=== PATIENT | female | born 2000 | race Caucasian/White ===

== ENCOUNTER 2018-09-21 14:39 | Emergency (ER) | payer BC ==
[2018-09-21] MEDS ORDERED: Albuterol/Ipratropium 3.0-0.5 MG/3 ML Neb Soln NEB ONE (14:49)
[2018-09-21] MEDS ORDERED: methylPREDNISolone Sodium Succinate 125 MG/2 ML SDV IM ONE (14:53)
[2018-09-21 15:37] LABS: CHLORIDE,CL 101 mmol/L (98-107); SODIUM,NA 138 mmol/L (136-145)
--- NOTE | 2018-09-21 15:54 | EDM.PDOC ---
ED HPI GENERAL MEDICAL PROBLEM - General Chief Complaint: Respiratory Problem Stated Complaint: FEELING SICK/DIFF. BREATHING Time Seen by Provider: 09/21/18 14:41 Source of Information: Reports: Patient History Limitations: Reports: No Limitations - History of Present Illness INITIAL COMMENTS - FREE TEXT/NARRATIVE: HISTORY AND PHYSICAL: History of present illness: Patient is a 18-year-old female presents to the ED today with concern of cough and feeling like she can't take a deep breath. Patient states she does have a history of asthma and has an albuterol inhaler. Patient states she has not followed up with her asthma and some time but feels that her symptoms could be related to an exacerbation. Patient states she was supposed to be taking another medication for her asthma but has not followed up to get it refilled. Patient states her symptoms today of an ongoing for the past 2-3 days and she has noticed she has had to use her albuterol inhaler several times throughout the day. Patient denies fever, chills, chest pain. Denies headache, neck stiff ness, change in vision, syncope, or near syncope. Denies nausea, vomiting, abdominal pain, diarrhea, constipation, or dysuria. Has not noted any blood in urine or stool. Patient has been eating and drinking appropriately. Patient denies any other health history. Review of systems: As per history of present illness and below otherwise all systems reviewed and negative. Past medical history: As per history of present illness and as reviewed below otherwise noncontributory. Surgical history: As per history of present illness and as reviewed below otherwise noncontributory. Social history: See social history for further information Family history: As per history of present illness and as reviewed below otherwise noncontributory. Physical exam: General: Patient is alert, oriented, and in no acute distress. Patient sitting comfortably on exam table. HEENT: Atraumatic, normocephalic, pupils equal and reactive bilaterally, negative for conjunctival pallor or scleral icterus, mucous membranes moist, TMs normal bilaterally, throat clear, neck supple, nontender, trachea midline. No drooling or trismus noted. No meningeal signs. No hot potato voice noted. Lungs: Mild wheezing heard in bilateral lung bases, breath sounds equal bilaterally, chest nontender. Heart: S1S2, regular rate and rhythm without overt murmur Abdomen: Obese, soft, nondistended, nontender. Negative for masses or hepatosplenomegaly. Negative for costovertebral tenderness. Pelvis: Stable nontender. Genitourinary: Deferred. Rectal: Deferred. Skin: Intact, warm, dry. No lesions or rashes noted. Extremities: Atraumatic, negative for cords or calf pain. Neurovascular unremarkable. Neuro: Awake, alert, oriented. Cranial nerves II through XII unremarkable. Cerebellum unremarkable. Motor and sensory unremarkable throughout. Exam nonfocal. Notes: Patient expresses resolution of symptoms with therapeutics below. CXR shows no acute cardiopulmonary process. Discussed the importance for follow-up with a primary care provider. Voices understanding and is agreeable to plan of care. Denies any further questions or concerns at this time. Diagnostics: CBC, CMP, UA, Uhcg, CXR, influenza, strep Therapeutics: DuoNeb, Solu-Medrol Prescription: Medrol dose pack, duoneb Impression: Asthma exacerbation Plan: 1. Take medications as prescribed. You can alternate ibuprofen and Tylenol as directed for pain and discomfort. 2. Follow-up with a primary care provider as discussed. 3. Return to the ED as needed and as discussed. Definitive disposition and diagnosis as appropriate pending reevaluation and review of above. - Related Data Allergies Allergy/AdvReac Type Severity Reaction Status Date / Time lamotrigine [From Lamictal] Allergy Cannot Verified 09/21/18 14:41 Remember Sulfa (Sulfonamide Allergy Rash Verified 09/21/18 14:41 Antibiotics) Home Meds: Home Meds Albuterol Sulfate [Proair Hfa] 1 puff INH ASDIRECTED 09/21/18 [History] Cetirizine [ZyrTEC] 10 mg PO DAILY 09/21/18 [History] Montelukast [Singulair] 10 mg PO DAILY 09/21/18 [History] Past Medical History Respiratory History: Reports: Asthma - Infectious Disease History Infectious Disease History: Reports: None Social & Family History - Family History Family Medical History: Noncontributory - Tobacco Use Smoking Status *Q: Current Every Day Smoker Years of Tobacco use: 5 Packs/Tins Daily: 0.5 - Caffeine Use Caffeine Use: Reports: Coffee, Energy Drinks - Recreational Drug Use Recreational Drug Use: No ED ROS GENERAL - Review of Systems Review Of Systems: ROS reveals no pertinent complaints other than HPI. ED EXAM, GENERAL - Physical Exam Exam: See Below (See dictation) Course - Vital Signs Last Recorded V/S: Last Vital Signs Temp 36.4 C 09/21/18 14:44 Pulse 68 09/21/18 14:44 Resp 16 09/21/18 14:44 BP 138/87 09/21/18 14:44 Pulse Ox 98 09/21/18 15:00 - Orders/Labs/Meds Orders: Active Orders 24 hr Category Date Time Status RT Aerosol Therapy [RC] ASDIRECTED Care 09/21/18 14:49 Active CULTURE STREP A CONFIRMATION [] Stat Lab 09/21/18 15:00 Results STREP SCRN A RAPID W CULT CONF [] Stat Lab 09/21/18 15:00 Results Labs: Laboratory Tests 09/21/18 09/21/18 09/21/18 Range/Units 14:58 14:58 15:10 WBC 6.22 (4.0-11.0) K/uL RBC 4.31 (4.30-5.90) M/uL Hgb 14.6 (12.0-16.0) g/dL Hct 41.3 (36.0-46.0) % MCV 95.8 (80.0-98.0) fL MCH 33.9 H (27.0-32.0) pg MCHC 35.4 (31.0-37.0) g/dL RDW Std Deviation 42.2 (28.0-62.0) fl RDW Coeff of Vannesa 12 (11.0-15.0) % Plt Count 207 (150-400) K/uL MPV 10.30 (7.40-12.00) fL Neut % (Auto) 72.2 (48.0-80.0) % Lymph % (Auto) 17.2 (16.0-40.0) % Bland % (Auto) 5.9 (0.0-15.0) % Eos % (Auto) 4.7 (0.0-7.0) % Baso % (Auto) 0.0 (0.0-1.5) % Neut # (Auto) 4.5 (1.4-5.7) K/uL Lymph # (Auto) 1.1 (0.6-2.4) K/uL Bland # (Auto) 0.4 (0.0-0.8) K/uL Eos # (Auto) 0.3 (0.0-0.7) K/uL Baso # (Auto) 0.0 (0.0-0.1) K/uL Nucleated RBC % 0.0 /100WBC Nucleated RBCs # 0 K/uL Sodium 138 (136-145) mmol/L Potassium 3.7 (3.5-5.1) mmol/L Chloride 101 (98-107) mmol/L Carbon Dioxide 25.5 (21.0-32.0) mmol/L BUN 10 (7.0-18.0) mg/dL Creatinine 0.7 (0.6-1.0) mg/dL Est Cr Clr Drug Dosing 115.36 mL/min Estimated GFR (MDRD) > 60.0 ml/min Glucose 151 H (74-106) mg/dL Calcium 9.3 (8.5-10.1) mg/dL Total Bilirubin 1.6 H (0.2-1.0) mg/dL AST 19 (15-37) IU/L ALT 26 (14-63) IU/L Alkaline Phosphatase 54 (46-116) U/L Total Protein 7.3 (6.4-8.2) g/dL Albumin 4.3 (3.4-5.0) g/dL Globulin 3.0 (2.6-4.0) g/dL Albumin/Globulin Ratio 1.4 (0.9-1.6) Urine Color YELLOW Urine Appearance CLEAR Urine pH 8.5 H (5.0-8.0) Ur Specific Grant 1.010 (1.001-1.035) Urine Protein NEGATIVE (NEGATIVE) mg/dL Urine Glucose (UA) NEGATIVE (NEGATIVE) mg/dL Urine Ketones NEGATIVE (NEGATIVE) mg/dL Urine Occult Blood NEGATIVE (NEGATIVE) Urine Nitrite NEGATIVE (NEGATIVE) Urine Bilirubin NEGATIVE (NEGATIVE) Urine Urobilinogen 0.2 (<2.0) EU/dL Ur Leukocyte Esterase NEGATIVE (NEGATIVE) Urine HCG, Qual (NEGATIVE) 09/21/18 Range/Units 15:10 WBC (4.0-11.0) K/uL RBC (4.30-5.90) M/uL Hgb (12.0-16.0) g/dL Hct (36.0-46.0) % MCV (80.0-98.0) fL MCH (27.0-32.0) pg MCHC (31.0-37.0) g/dL RDW Std Deviation (28.0-62.0) fl RDW Coeff of Vannesa (11.0-15.0) % Plt Count (150-400) K/uL MPV (7.40-12.00) fL Neut % (Auto) (48.0-80.0) % Lymph % (Auto) (16.0-40.0) % Bland % (Auto) (0.0-15.0) % Eos % (Auto) (0.0-7.0) % Baso % (Auto) (0.0-1.5) % Neut # (Auto) (1.4-5.7) K/uL Lymph # (Auto) (0.6-2.4) K/uL Bland # (Auto) (0.0-0.8) K/uL Eos # (Auto) (0.0-0.7) K/uL Baso # (Auto) (0.0-0.1) K/uL Nucleated RBC % /100WBC Nucleated RBCs # K/uL Sodium (136-145) mmol/L Potassium (3.5-5.1) mmol/L Chloride (98-107) mmol/L Carbon Dioxide (21.0-32.0) mmol/L BUN (7.0-18.0) mg/dL Creatinine (0.6-1.0) mg/dL Est Cr Clr Drug Dosing mL/min Estimated GFR (MDRD) ml/min Glucose (74-106) mg/dL Calcium (8.5-10.1) mg/dL Total Bilirubin (0.2-1.0) mg/dL AST (15-37) IU/L ALT (14-63) IU/L Alkaline Phosphatase (46-116) U/L Total Protein (6.4-8.2) g/dL Albumin (3.4-5.0) g/dL Globulin (2.6-4.0) g/dL Albumin/Globulin Ratio (0.9-1.6) Urine Color Urine Appearance Urine pH (5.0-8.0) Ur Specific Grant (1.001-1.035) Urine Protein (NEGATIVE) mg/dL Urine Glucose (UA) (NEGATIVE) mg/dL Urine Ketones (NEGATIVE) mg/dL Urine Occult Blood (NEGATIVE) Urine Nitrite (NEGATIVE) Urine Bilirubin (NEGATIVE) Urine Urobilinogen (<2.0) EU/dL Ur Leukocyte Esterase (NEGATIVE) Urine HCG, Qual NEGATIVE (NEGATIVE) Meds: Medications Discontinued Medications Generic Name Dose Route Start Last Admin Trade Name Jayden PRN Reason Stop Dose Admin Albuterol/Ipratropium 3 ml 09/21/18 14:49 09/21/18 15:00 Duoneb 3.0-0.5 Mg/3 Ml NEB 09/21/18 14:50 3 ml ONETIME ONE Administration Methylprednisolone Sodium Succinate 125 mg 09/21/18 14:53 09/21/18 15:06 Solu-Medrol IM 09/21/18 14:54 125 mg ONETIME ONE Administration Departure - Departure Time of Disposition: 16:17 Disposition: Home, Self-Care 01 Clinical Impression: Asthma exacerbation Qualifiers: Asthma severity: unspecified severity Asthma persistence: unspecified Qualified Code(s): J45.901 - Unspecified asthma with (acute) exacerbation - Discharge Information Forms: ED Department Discharge Additional Instructions: The following information is given to patients seen in the emergency department who are being discharged to home. This information is to outline your options for follow-up care. We provide all patients seen in our emergency department with a follow-up referral. The need for follow-up, as well as the timing and circumstances, are variable depending upon the specifics of your emergency department visit. If you don't have a primary care physician on staff, we will provide you with a referral. We always advise you to contact your personal physician following an emergency department visit to inform them of the circumstance of the visit and for follow-up with them and/or the need for any referrals to a consulting specialist. The emergency department will also refer you to a specialist when appropriate. This referral assures that you have the opportunity for follow-up care with a specialist. All of these measure are taken in an effort to provide you with optimal care, which includes your follow-up. Under all circumstances we always encourage you to contact your private physician who remains a resource for coordinating your care. When calling for follow-up care, please make the office aware that this follow-up is from your recent emergency room visit. If for any reason you are refused follow-up, please contact the [facility] Emergency Department at and asked to speak to the emergency department charge nurse. [facility] [address] [place] [address] [address] 1. Take medications as prescribed. You can alternate ibuprofen and Tylenol as directed for pain and discomfort. 2. Follow-up with a primary care provider as discussed. 3. Return to the ED as needed and as discussed. - My Orders Last 24 Hours: My Active Orders 09/21/18 14:49 RT Aerosol Therapy [RC] ASDIRECTED 09/21/18 15:00 CULTURE STREP A CONFIRMATION [RM] Stat STREP SCRN A RAPID W CULT CONF [RM] Stat - Assessment/Plan Last 24 Hours: My Active Orders 09/21/18 14:49 RT Aerosol Therapy [RC] ASDIRECTED 09/21/18 15:00 CULTURE STREP A CONFIRMATION [RM] Stat STREP SCRN A RAPID W CULT CONF [RM] Stat
--- NOTE | 2018-09-21 16:08 | CR ---
EXAMINATION: Two-view chest (PA and Lateral views). HISTORY: Shortness of breath. FINDINGS: The trachea is midline. The cardiomediastinal silhouette is within normal limits. No pulmonary infiltrates, effusions or pneumothorax. Osseous structures appear unremarkable. IMPRESSION: No acute cardiopulmonary process.
== END 2018-09-21 16:45 | disposition home or self-care (01) ==
LOC: MW.ED 14:39
DX: J45.901 Unspecified asthma with (acute) exacerbation (principal); Z88.2 Allergy status to sulfonamides; Z88.8 Allergy status to other drugs, medicaments and biological substances; F17.210 Nicotine dependence, cigarettes, uncomplicated
CPT/HCPCS: 36415; 71046; 80053; 81003; 81025; 85025; 87081; 87804; 87880; 96372; 99285; J2930; 99283; J7620-GY

== ENCOUNTER 2018-09-24 11:17 | Emergency (ER) | payer BC ==
[2018-09-24] MEDS ORDERED: Albuterol/Ipratropium 3.0-0.5 MG/3 ML Neb Soln NEB ONE (11:32)
--- NOTE | 2018-09-24 11:33 | EDM.PDOC ---
ED HPI GENERAL MEDICAL PROBLEM - General Chief Complaint: Chest Pain Stated Complaint: CHEST PAINS Time Seen by Provider: 09/24/18 11:19 Source of Information: Reports: Patient History Limitations: Reports: No Limitations - History of Present Illness INITIAL COMMENTS - FREE TEXT/NARRATIVE: HISTORY AND PHYSICAL: History of present illness: Patient is a 18-year-old female presents to the ED today with concern for midsternal chest pain that she rates a 5 out of 10. Patient states she has not taken anything for her symptoms. Patient isn't really able to qualify that the pain is like but states that it is worse when she bends over or takes a deep breath. Patient states she almost feels as if she is anxious but has never had this happen before. Patient states she does have anxiety which she has not treated in several years. Patient denies any other symptoms at this time. Patient does have a pro-air albuterol inhaler. Patient denies fever, chills, shortness of breath, or cough. Denies headache, neck stiff ness, change in vision, syncope, or near syncope. Denies nausea, vomiting, abdominal pain, diarrhea, constipation, or dysuria. Has not noted any blood in urine or stool. Patient has been eating and drinking appropriately. Patient has a history of asthma and anxiety. Review of systems: As per history of present illness and below otherwise all systems reviewed and negative. Past medical history: As per history of present illness and as reviewed below otherwise noncontributory. Surgical history: As per history of present illness and as reviewed below otherwise noncontributory. Social history: See social history for further information Family history: As per history of present illness and as reviewed below otherwise noncontributory. Physical exam: General: Patient is alert, oriented, and in no acute distress. Patient laying comfortably on exam table. HEENT: Atraumatic, normocephalic, pupils equal and reactive bilaterally, negative for conjunctival pallor or scleral icterus, mucous membranes moist, TMs normal bilaterally, throat clear, neck supple, nontender, trachea midline. No drooling or trismus noted. No meningeal signs. No hot potato voice noted. Lungs: Mild wheezing to auscultation of lung bases, breath sounds equal bilaterally, chest nontender. Heart: S1S2, regular rate and rhythm without overt murmur Abdomen: Soft, nondistended, nontender. Negative for masses or hepatosplenomegaly. Negative for costovertebral tenderness. Pelvis: Stable nontender. Genitourinary: Deferred. Rectal: Deferred. Skin: Intact, warm, dry. No lesions or rashes noted. Extremities: Atraumatic, negative for cords or calf pain. Neurovascular unremarkable. Neuro: Awake, alert, oriented. Cranial nerves II through XII unremarkable. Cerebellum unremarkable. Motor and sensory unremarkable throughout. Exam nonfocal. Notes: Chest x-ray shows no acute cardiopulmonary process. Patient's chest pain did resolve after DuoNeb. Will treat for asthma exacerbation. Discussed the importance for follow-up with a primary care provider. Voices understanding and is agreeable to plan of care. Denies any further questions or concerns at this time. Diagnostics: CBC, CMP, EKG, troponin, chest x-ray, UA, urine hCG Therapeutics: duoneb Prescription: Duoneb, medrol dose pack Impression: Asthma exacerbation Chest pain, unspecified Plan: 1. Take medication as prescribed. Follow-up with a primary care provider as discussed. 2. You can alternate ibuprofen and Tylenol as directed for pain and discomfort. 3. Return to the ED as needed and as discussed Definitive disposition and diagnosis as appropriate pending reevaluation and review of above. sternal Pain Score (Numeric/FACES): 5 - Related Data Allergies Allergy/AdvReac Type Severity Reaction Status Date / Time lamotrigine [From Lamictal] Allergy Cannot Verified 09/24/18 11:22 Remember Sulfa (Sulfonamide Allergy Rash Verified 09/24/18 11:22 Antibiotics) Home Meds: Home Meds Albuterol Sulfate [Proair Hfa] 1 puff INH ASDIRECTED 09/21/18 [History] Cetirizine [ZyrTEC] 10 mg PO DAILY 09/21/18 [History] Montelukast [Singulair] 10 mg PO DAILY 09/21/18 [History] Past Medical History Cardiovascular History: Reports: Hypertension Respiratory History: Reports: Asthma - Infectious Disease History Infectious Disease History: Reports: None Social & Family History - Family History Family Medical History: Noncontributory - Tobacco Use Smoking Status *Q: Light Tobacco Smoker Years of Tobacco use: 5 Packs/Tins Daily: 0 - Caffeine Use Caffeine Use: Reports: Coffee, Energy Drinks - Recreational Drug Use Recreational Drug Use: No ED ROS GENERAL - Review of Systems Review Of Systems: ROS reveals no pertinent complaints other than HPI. ED EXAM, GENERAL - Physical Exam Exam: See Below (See dictation) Course - Vital Signs Last Recorded V/S: Last Vital Signs Temp 36.6 C 09/24/18 11:19 Pulse 93 09/24/18 11:19 Resp 15 09/24/18 11:19 BP Pulse Ox 95 09/24/18 11:19 - Orders/Labs/Meds Orders: Active Orders 24 hr Category Date Time Status EKG Documentation Completion [RC] STAT Care 09/24/18 11:23 Active RT Aerosol Therapy [RC] ASDIRECTED Care 09/24/18 11:32 Active Labs: Laboratory Tests 09/24/18 09/24/18 09/24/18 Range/Units 11:29 11:29 11:59 WBC 7.52 (4.0-11.0) K/uL RBC 4.21 L (4.30-5.90) M/uL Hgb 14.2 (12.0-16.0) g/dL Hct 40.3 (36.0-46.0) % MCV 95.7 (80.0-98.0) fL MCH 33.7 H (27.0-32.0) pg MCHC 35.2 (31.0-37.0) g/dL RDW Std Deviation 42.3 (28.0-62.0) fl RDW Coeff of Vannesa 12 (11.0-15.0) % Plt Count 213 (150-400) K/uL MPV 10.00 (7.40-12.00) fL Neut % (Auto) 73.1 (48.0-80.0) % Lymph % (Auto) 14.8 L (16.0-40.0) % Howell % (Auto) 9.8 (0.0-15.0) % Eos % (Auto) 2.3 (0.0-7.0) % Baso % (Auto) 0.0 (0.0-1.5) % Neut # (Auto) 5.5 (1.4-5.7) K/uL Lymph # (Auto) 1.1 (0.6-2.4) K/uL Howell # (Auto) 0.7 (0.0-0.8) K/uL Eos # (Auto) 0.2 (0.0-0.7) K/uL Baso # (Auto) 0.0 (0.0-0.1) K/uL Nucleated RBC % 0.0 /100WBC Nucleated RBCs # 0 K/uL Sodium 138 (136-145) mmol/L Potassium 3.8 (3.5-5.1) mmol/L Chloride 103 (98-107) mmol/L Carbon Dioxide 22.4 (21.0-32.0) mmol/L BUN 12 (7.0-18.0) mg/dL Creatinine 0.7 (0.6-1.0) mg/dL Est Cr Clr Drug Dosing 115.36 mL/min Estimated GFR (MDRD) > 60.0 ml/min Glucose 104 (74-106) mg/dL Calcium 9.0 (8.5-10.1) mg/dL Total Bilirubin 0.9 (0.2-1.0) mg/dL AST 15 (15-37) IU/L ALT 24 (14-63) IU/L Alkaline Phosphatase 55 (46-116) U/L Troponin I < 0.050 (0.000-0.056) ng/mL Total Protein 7.2 (6.4-8.2) g/dL Albumin 4.3 (3.4-5.0) g/dL Globulin 2.9 (2.6-4.0) g/dL Albumin/Globulin Ratio 1.5 (0.9-1.6) Urine Color YELLOW Urine Appearance CLEAR Urine pH 6.0 (5.0-8.0) Ur Specific [place] 1.010 (1.001-1.035) Urine Protein NEGATIVE (NEGATIVE) mg/dL Urine Glucose (UA) NEGATIVE (NEGATIVE) mg/dL Urine Ketones NEGATIVE (NEGATIVE) mg/dL Urine Occult Blood NEGATIVE (NEGATIVE) Urine Nitrite NEGATIVE (NEGATIVE) Urine Bilirubin NEGATIVE (NEGATIVE) Urine Urobilinogen 0.2 (<2.0) EU/dL Ur Leukocyte Esterase NEGATIVE (NEGATIVE) Urine HCG, Qual (NEGATIVE) 09/24/18 Range/Units 11:59 WBC (4.0-11.0) K/uL RBC (4.30-5.90) M/uL Hgb (12.0-16.0) g/dL Hct (36.0-46.0) % MCV (80.0-98.0) fL MCH (27.0-32.0) pg MCHC (31.0-37.0) g/dL RDW Std Deviation (28.0-62.0) fl RDW Coeff of Vannesa (11.0-15.0) % Plt Count (150-400) K/uL MPV (7.40-12.00) fL Neut % (Auto) (48.0-80.0) % Lymph % (Auto) (16.0-40.0) % Howell % (Auto) (0.0-15.0) % Eos % (Auto) (0.0-7.0) % Baso % (Auto) (0.0-1.5) % Neut # (Auto) (1.4-5.7) K/uL Lymph # (Auto) (0.6-2.4) K/uL Howell # (Auto) (0.0-0.8) K/uL Eos # (Auto) (0.0-0.7) K/uL Baso # (Auto) (0.0-0.1) K/uL Nucleated RBC % /100WBC Nucleated RBCs # K/uL Sodium (136-145) mmol/L Potassium (3.5-5.1) mmol/L Chloride (98-107) mmol/L Carbon Dioxide (21.0-32.0) mmol/L BUN (7.0-18.0) mg/dL Creatinine (0.6-1.0) mg/dL Est Cr Clr Drug Dosing mL/min Estimated GFR (MDRD) ml/min Glucose (74-106) mg/dL Calcium (8.5-10.1) mg/dL Total Bilirubin (0.2-1.0) mg/dL AST (15-37) IU/L ALT (14-63) IU/L Alkaline Phosphatase (46-116) U/L Troponin I (0.000-0.056) ng/mL Total Protein (6.4-8.2) g/dL Albumin (3.4-5.0) g/dL Globulin (2.6-4.0) g/dL Albumin/Globulin Ratio (0.9-1.6) Urine Color Urine Appearance Urine pH (5.0-8.0) Ur Specific [place] (1.001-1.035) Urine Protein (NEGATIVE) mg/dL Urine Glucose (UA) (NEGATIVE) mg/dL Urine Ketones (NEGATIVE) mg/dL Urine Occult Blood (NEGATIVE) Urine Nitrite (NEGATIVE) Urine Bilirubin (NEGATIVE) Urine Urobilinogen (<2.0) EU/dL Ur Leukocyte Esterase (NEGATIVE) Urine HCG, Qual NEGATIVE (NEGATIVE) Meds: Medications Discontinued Medications Generic Name Dose Route Start Last Admin Trade Name Jayden PRN Reason Stop Dose Admin Albuterol/Ipratropium 3 ml 09/24/18 11:32 09/24/18 11:44 Duoneb 3.0-0.5 Mg/3 Ml NEB 09/24/18 11:33 3 ml ONETIME ONE Administration Departure - Departure Time of Disposition: 13:27 Disposition: Home, Self-Care 01 Clinical Impression: Asthma exacerbation Qualifiers: Asthma severity: unspecified severity Asthma persistence: unspecified Qualified Code(s): J45.901 - Unspecified asthma with (acute) exacerbation Chest pain Qualifiers: Chest pain type: unspecified Qualified Code(s): R07.9 - Chest pain, unspecified Referrals: PCP,None [Primary Care Provider] - Forms: ED Department Discharge Additional Instructions: The following information is given to patients seen in the emergency department who are being discharged to home. This information is to outline your options for follow-up care. We provide all patients seen in our emergency department with a follow-up referral. The need for follow-up, as well as the timing and circumstances, are variable depending upon the specifics of your emergency department visit. If you don't have a primary care physician on staff, we will provide you with a referral. We always advise you to contact your personal physician following an emergency department visit to inform them of the circumstance of the visit and for follow-up with them and/or the need for any referrals to a consulting specialist. The emergency department will also refer you to a specialist when appropriate. This referral assures that you have the opportunity for follow-up care with a specialist. All of these measure are taken in an effort to provide you with optimal care, which includes your follow-up. Under all circumstances we always encourage you to contact your private physician who remains a resource for coordinating your care. When calling for follow-up care, please make the office aware that this follow-up is from your recent emergency room visit. If for any reason you are refused follow-up, please contact the [facility] Emergency Department at and asked to speak to the emergency department charge nurse. [facility] [address] [place] [address] [address] 1. Take medication as prescribed. Follow-up with a primary care provider as discussed. 2. You can alternate ibuprofen and Tylenol as directed for pain and discomfort. 3. Return to the ED as needed and as discussed - My Orders Last 24 Hours: My Active Orders 09/24/18 11:23 EKG Documentation Completion [RC] STAT 09/24/18 11:32 RT Aerosol Therapy [RC] ASDIRECTED - Assessment/Plan Last 24 Hours: My Active Orders 09/24/18 11:23 EKG Documentation Completion [RC] STAT 09/24/18 11:32 RT Aerosol Therapy [RC] ASDIRECTED
[2018-09-24 12:05] LABS: CHLORIDE,CL 103 mmol/L (98-107); SODIUM,NA 138 mmol/L (136-145)
--- NOTE | 2018-09-24 13:06 | CR ---
EXAMINATION: Portable chest radiograph. HISTORY: Chest pain. FINDINGS: The trachea is midline. The cardiomediastinal silhouette is within normal limits. No pulmonary infiltrates, effusions or pneumothorax. Osseous structures appear unremarkable. IMPRESSION: No acute cardiopulmonary process.
== END 2018-09-24 13:44 | disposition home or self-care (01) ==
LOC: MW.ED 11:17
DX: J45.901 Unspecified asthma with (acute) exacerbation (principal); R07.2 Precordial pain; I10 Essential (primary) hypertension; F17.210 Nicotine dependence, cigarettes, uncomplicated; Z88.8 Allergy status to other drugs, medicaments and biological substances; Z88.2 Allergy status to sulfonamides; Z79.899 Other long term (current) drug therapy
CPT/HCPCS: 36415; 71045; 71045-26; 80053; 81003; 81025; 84484; 85025; 93005; 99285-25; J7620-GY

== ENCOUNTER 2018-12-02 09:39 | Emergency (ER) | payer BC ==
[2018-12-02] MEDS ORDERED: Albuterol/Ipratropium 3.0-0.5 MG/3 ML Neb Soln NEB ONE (09:57)
--- NOTE | 2018-12-02 10:00 | EDM.PDOC ---
ED HPI GENERAL MEDICAL PROBLEM - General Chief Complaint: Respiratory Problem Stated Complaint: TROUBLE BREATHING Time Seen by Provider: 12/02/18 09:40 Source of Information: Reports: Patient History Limitations: Reports: No Limitations - History of Present Illness INITIAL COMMENTS - FREE TEXT/NARRATIVE: History of present illness: []Patient has a history of asthma and is a smoker but recently quit. She states that she has had a productive cough, feels chest tightness and difficulty breathing this morning. She tried an albuterol inhaler at home and feels that this did not help her and that she needs a breathing treatment. Patient denies being , fevers, chills or chest pain. Review of systems: As per history of present illness and below otherwise all systems reviewed and negative. Past medical history: As per history of present illness and as reviewed below otherwise noncontributory. Surgical history: As per history of present illness and as reviewed below otherwise noncontributory. Social history: No reported history of drug or alcohol abuse. Family history: As per history of present illness and as reviewed below otherwise noncontributory. Physical exam: General: Well developed, well nourished patient appears anxious and sweaty HEENT: Atraumatic, normocephalic, pupils reactive, negative for conjunctival pallor or scleral icterus, mucous membranes moist, throat clear, neck supple, nontender, trachea midline. Lungs: Clear to auscultation, breath sounds equal bilaterally, chest nontender. No wheezing or retractions Heart: S1S2, regular, negative for clicks, rubs, or JVD. Abdomen: NABS, Soft, nondistended, nontender. Negative for masses or hepatosplenomegaly. Negative for costovertebral tenderness. Pelvis: Stable nontender. Genitourinary: Deferred. Rectal: Deferred. Extremities: Atraumatic, negative for cords or calf pain. Neurovascular unremarkable. Neuro: Awake, alert, oriented. Cranial nerves II through XII unremarkable. Cerebellum unremarkable. Motor and sensory unremarkable throughout. Exam nonfocal. Skin:warm and dry Diagnostics: chest x-ray negative Therapeutics: DuoNeb ED Course: Stable Impression: Shortness of breath, asthma exacerbation Prescriptions: None Plan: Take usu. meds as directed, follow up with your primary care physician, return to ER if symptoms worsen or change. Definitive disposition and diagnosis as appropriate pending reevaluation and review of above. Generalized Pain Score (Numeric/FACES): 1 - Related Data Allergies Allergy/AdvReac Type Severity Reaction Status Date / Time lamotrigine [From Lamictal] Allergy Cannot Verified 12/02/18 09:50 Remember Sulfa (Sulfonamide Allergy Rash Verified 12/02/18 09:50 Antibiotics) Home Meds: Home Meds Albuterol Sulfate [Proair Hfa] 1 puff INH ASDIRECTED 09/21/18 [History] Cetirizine [ZyrTEC] 10 mg PO DAILY 09/21/18 [History] Montelukast [Singulair] 10 mg PO DAILY 09/21/18 [History] Past Medical History Cardiovascular History: Reports: Hypertension Respiratory History: Reports: Asthma - Infectious Disease History Infectious Disease History: Reports: None Social & Family History - Family History Family Medical History: Noncontributory - Caffeine Use Caffeine Use: Reports: Coffee, Energy Drinks ED ROS GENERAL - Review of Systems Review Of Systems: See Below ED EXAM, GENERAL - Physical Exam Exam: See Below Course - Vital Signs Last Recorded V/S: Last Vital Signs Temp 97.4 F 12/02/18 09:51 Pulse 77 12/02/18 09:51 Resp 20 12/02/18 09:51 BP 105/82 12/02/18 09:51 Pulse Ox 99 12/02/18 09:51 - Orders/Labs/Meds Orders: Active Orders 24 hr Category Date Time Status RT Aerosol Therapy [RC] ASDIRECTED Care 12/02/18 09:57 Active Chest 1V Frontal [CR] Stat Exams 12/02/18 09:58 Taken Meds: Medications Discontinued Medications Generic Name Dose Route Start Last Admin Trade Name Freq PRN Reason Stop Dose Admin Albuterol/Ipratropium 3 ml 12/02/18 09:57 12/02/18 10:25 Duoneb 3.0-0.5 Mg/3 Ml NEB 12/02/18 09:58 3 ml ONETIME ONE Administration Departure - Departure Time of Disposition: 10:44 Disposition: Home, Self-Care 01 Condition: Good Clinical Impression: Asthma exacerbation Qualifiers: Asthma severity: unspecified severity Asthma persistence: unspecified Qualified Code(s): J45.901 - Unspecified asthma with (acute) exacerbation - Discharge Information *PRESCRIPTION DRUG MONITORING PROGRAM REVIEWED*: No *COPY OF PRESCRIPTION DRUG MONITORING REPORT IN PATIENT NANETTE: No Referrals: PCP,None [Primary Care Provider] - Forms: ED Department Discharge Additional Instructions: The following information is given to patients seen in the emergency department who are being discharged to home. This information is to outline your options for follow-up care. We provide all patients seen in our emergency department with a follow-up referral. The need for follow-up, as well as the timing and circumstances, are variable depending upon the specifics of your emergency department visit. If you don't have a primary care physician on staff, we will provide you with a referral. We always advise you to contact your personal physician following an emergency department visit to inform them of the circumstance of the visit and for follow-up with them and/or the need for any referrals to a consulting specialist. The emergency department will also refer you to a specialist when appropriate. This referral assures that you have the opportunity for follow-up care with a specialist. All of these measure are taken in an effort to provide you with optimal care, which includes your follow-up. Under all circumstances we always encourage you to contact your private physician who remains a resource for coordinating your care. When calling for follow-up care, please make the office aware that this follow-up is from your recent emergency room visit. If for any reason you are refused follow-up, please contact the [facility] Emergency Department at and asked to speak to the emergency department charge nurse. [facility] [address] [place] [id number] - My Orders Last 24 Hours: My Active Orders 12/02/18 09:57 RT Aerosol Therapy [RC] ASDIRECTED 12/02/18 09:58 Chest 1V Frontal [CR] Stat - Assessment/Plan Last 24 Hours: My Active Orders 12/02/18 09:57 RT Aerosol Therapy [RC] ASDIRECTED 12/02/18 09:58 Chest 1V Frontal [CR] Stat
--- NOTE | 2018-12-02 10:48 | CR ---
EXAMINATION: Portable chest radiograph. HISTORY: Shortness of breath. FINDINGS: The trachea is midline. The cardiomediastinal silhouette is within normal limits. No pulmonary infiltrates, effusions or pneumothorax. Osseous structures appear unremarkable. IMPRESSION: No acute cardiopulmonary process.
== END 2018-12-02 10:57 | disposition home or self-care (01) ==
LOC: MW.ED 09:39
DX: J45.901 Unspecified asthma with (acute) exacerbation (principal); I10 Essential (primary) hypertension; Z79.899 Other long term (current) drug therapy; Z88.2 Allergy status to sulfonamides; Z88.8 Allergy status to other drugs, medicaments and biological substances
CPT/HCPCS: 71045; 71045-26; 94640; 99284; 99284-25; J7620-GY

== ENCOUNTER 2018-12-15 10:30 | Emergency (ER) | payer BC ==
--- NOTE | 2018-12-15 10:37 | EDM.PDOC ---
ED HPI GENERAL MEDICAL PROBLEM - General Stated Complaint: PT FELL ON 12/12/18 AND HIT HEAD Time Seen by Provider: 12/15/18 10:35 Source of Information: Reports: Patient History Limitations: Reports: No Limitations - History of Present Illness INITIAL COMMENTS - FREE TEXT/NARRATIVE: HISTORY AND PHYSICAL: History of present illness: Patient is a 18-year-old female who presents to the emergency room with complaints of left hip pain after a fall. She states she was on a spinning piece of equipment at the playground when she fell off landing on her left hip. She states she did hit her head but had no loss of consciousness. She has had a dull headache associated with hitting her head but has had no visual changes, dizziness, nausea, vomiting or near/syncope. She has been using over-the- counter Tylenol and ibuprofen but has had no relief with the left hip pain. Increased pain with pressure and ambulation. Denies any weakness of the extremity. Denies any numbness, tingling or saddle paresthesia. States she is otherwise in good health. Review of systems: As per history of present illness and below otherwise all systems reviewed and negative. Past medical history: As per history of present illness and as reviewed below otherwise noncontributory. Surgical history: As per history of present illness and as reviewed below otherwise noncontributory. Social history: See social history for further information Family history: As per history of present illness and as reviewed below otherwise noncontributory. Physical exam: General: Well developed and well nourished 18-year-old female. Alert and oriented. Nontoxic appearing and in no acute distress. HEENT: Nontender with palpation, normocephalic, pupils equal and reactive bilaterally, negative for conjunctival pallor or scleral icterus, mucous membranes moist, TMs normal bilaterally, throat clear, neck supple, nontender, trachea midline. No drooling or trismus noted. No meningeal signs. No hot potato voice noted. Lungs: Clear to auscultation, breath sounds equal bilaterally, chest nontender. Heart: S1S2, regular rate and rhythm without overt murmur Abdomen: Soft, nondistended, nontender. Negative for masses. Negative for costovertebral tenderness. Pelvis: Stable nontender. Genitourinary: Deferred. Rectal: Deferred. C-spine/Back: No pinpoint vertebral tenderness upon palpation. No crepitus, step -offs or obvious deformities. Patient is ambulatory into the emergency room without difficulty or deficit. Able to rock back on heels and walk on toes. Denies any urinary or fecal incontinence. Denies any numbness, tingling or saddle paresthesia. Skin: Intact, warm, dry. No lesions or rashes noted. Extremities: Mild tenderness with palpation of the left anterior hip, moves all extremities per self without difficulty or deficits, negative for cords or calf pain. Neurovascular unremarkable. Neuro: Awake, alert, oriented. Cranial nerves II through XII unremarkable. Cerebellum unremarkable. Motor and sensory unremarkable throughout. Exam nonfocal. Notes: We discussed head CT, she declines. She is aware of the risks of not having imaging. Would like an x-ray of the left hip. She states is no possibility of as she has not been sexually active in several months. Declines allowing a urine test. X-ray shows no acute findings. Vital signs are stable. Supportive care measures were reviewed and discussed. Voices understanding and is agreeable to plan of care. Denies any further questions or concerns at this time. Diagnostics: Pelvis with left hip x-ray Therapeutics: Toradol IM Prescription: Tramadol (#10) Diclofenac Impression: Head Injury Concussion Left hip injury Plan: 1. Please review and follow the head injury instructions that we discussed in her printed in your discharge packet. 2. You may alternate heat and ice to the painful areas as we discussed. 3. Tylenol and/or ibuprofen as needed for pain management. Tramadol for moderate to severe pain. This medication may cause drowsiness, so do not take it will driving her needing to be functioning out of the house. 4. Follow-up with your primary care provider as we discussed. Return to the ED as needed and as discussed. Definitive disposition and diagnosis as appropriate pending reevaluation and review of above. Duration: Day(s): Location: Reports: Pelvis left hip Pain Score (Numeric/FACES): 6 - Related Data Allergies Allergy/AdvReac Type Severity Reaction Status Date / Time lamotrigine [From Lamictal] Allergy Cannot Verified 12/15/18 10:34 Remember Sulfa (Sulfonamide Allergy Rash Verified 12/15/18 10:34 Antibiotics) Home Meds: Home Meds Albuterol Sulfate [Proair Hfa] 1 puff INH ASDIRECTED 09/21/18 [History] Cetirizine [ZyrTEC] 10 mg PO DAILY 09/21/18 [History] Montelukast [Singulair] 10 mg PO DAILY 09/21/18 [History] Diclofenac Sodium [Voltaren] 75 mg PO BIDMEALS PRN #30 tab.cr 12/15/18 [Rx] traMADol [Ultram] 50 mg PO Q4H PRN #10 tab 12/15/18 [Rx] Past Medical History Cardiovascular History: Reports: Hypertension Respiratory History: Reports: Asthma Psychiatric History: Reports: Anxiety, Depression, PTSD - Infectious Disease History Infectious Disease History: Reports: None Social & Family History - Family History Family Medical History: Noncontributory - Caffeine Use Caffeine Use: Reports: Coffee, Energy Drinks ED ROS GENERAL - Review of Systems Review Of Systems: ROS reveals no pertinent complaints other than HPI. ED EXAM, HEAD INJURY - Physical Exam Exam: See Below (See dictation) Course - Vital Signs Last Recorded V/S: Last Vital Signs Temp 96.6 F 12/15/18 10:34 Pulse 82 12/15/18 10:34 Resp 18 12/15/18 10:34 BP 140/83 12/15/18 10:34 Pulse Ox 98 12/15/18 10:34 - Orders/Labs/Meds Orders: Active Orders 24 hr Category Date Time Status Hip Min 2V or 3V w Pelvis Lt [CR] Stat Exams 12/15/18 10:41 Taken Meds: Medications Discontinued Medications Generic Name Dose Route Start Last Admin Trade Name Freq PRN Reason Stop Dose Admin Ketorolac Tromethamine 60 mg 12/15/18 10:41 12/15/18 11:07 Toradol IM 12/15/18 10:42 60 mg ONETIME ONE Administration Departure - Departure Time of Disposition: 11:35 Disposition: Home, Self-Care 01 Clinical Impression: Concussion Qualifiers: Encounter type: initial encounter Loss of consciousness presence/duration: without LOC Qualified Code(s): S06.0X0A - Concussion without loss of consciousness, initial encounter Head injury Qualifiers: Encounter type: initial encounter Qualified Code(s): S09.90XA - Unspecified injury of head, initial encounter Injury of left hip Qualifiers: Encounter type: initial encounter Qualified Code(s): S79.912A - Unspecified injury of left hip, initial encounter - Discharge Information Prescriptions: Diclofenac Sodium [Voltaren] 75 mg PO BIDMEALS PRN #30 tab.cr PRN Reason: Pain traMADol [Ultram] 50 mg PO Q4H PRN #10 tab PRN Reason: Pain (Moderate 4-6) Instructions: Concussion, Adult, [id number], Hip Pain Additional Instructions: The following information is given to patients seen in the emergency department who are being discharged to home. This information is to outline your options for follow-up care. We provide all patients seen in our emergency department with a follow-up referral. The need for follow-up, as well as the timing and circumstances, are variable depending upon the specifics of your emergency department visit. If you don't have a primary care physician on staff, we will provide you with a referral. We always advise you to contact your personal physician following an emergency department visit to inform them of the circumstance of the visit and for follow-up with them and/or the need for any referrals to a consulting specialist. The emergency department will also refer you to a specialist when appropriate. This referral assures that you have the opportunity for follow-up care with a specialist. All of these measure are taken in an effort to provide you with optimal care, which includes your follow-up. Under all circumstances we always encourage you to contact your private physician who remains a resource for coordinating your care. When calling for follow-up care, please make the office aware that this follow-up is from your recent emergency room visit. If for any reason you are refused follow-up, please contact the [facility] Emergency Department at and asked to speak to the emergency department charge nurse. [facility] [address] [place] [address] [id number] [address] [address] 1. Please review and follow the head injury instructions that we discussed in her printed in your discharge packet. 2. You may alternate heat and ice to the painful areas as we discussed. 3. Tylenol and/or ibuprofen as needed for pain management. Tramadol for moderate to severe pain. This medication may cause drowsiness, so do not take it will driving her needing to be functioning out of the house. 4. Follow-up with your primary care provider as we discussed. Return to the ED as needed and as discussed. - My Orders Last 24 Hours: My Active Orders 12/15/18 10:41 Hip Min 2V or 3V w Pelvis Lt [CR] Stat - Assessment/Plan Last 24 Hours: My Active Orders 12/15/18 10:41 Hip Min 2V or 3V w Pelvis Lt [CR] Stat
[2018-12-15] MEDS ORDERED: Ketorolac 60 MG/2 ML SDV IM ONE (10:41)
--- NOTE | 2018-12-15 11:38 | CR ---
EXAMINATION: Pelvis and left hip HISTORY: Fall COMPARISON: None TECHNIQUE: AP pelvis and 2 views of the left hip FINDINGS: There is no acute osseous abnormality, dislocation, or fracture. Bone mineralization and joint spaces appear grossly preserved. SI joints are symmetric. The iliopectineal lines are intact. Small ligamentous calcifications at the pubic symphysis. IMPRESSION: 1. No definite acute osseous abnormality identified.
== END 2018-12-15 11:55 | disposition home or self-care (01) ==
LOC: MW.ED 10:30
DX: S06.0X0A Concussion without loss of consciousness, initial encounter (principal); S79.912A Unspecified injury of left hip, initial encounter; I10 Essential (primary) hypertension; J45.909 Unspecified asthma, uncomplicated; Z88.2 Allergy status to sulfonamides; Z88.8 Allergy status to other drugs, medicaments and biological substances; Z79.899 Other long term (current) drug therapy; W09.8XXA Fall on or from other playground equipment, initial encounter
CPT/HCPCS: 73502; 96372; 99283; J1885; 99284

== ENCOUNTER 2019-02-12 13:50 | Emergency (ER) | payer OTHER, BC ==
[2019-02-12] MEDS ORDERED: Octyl 2-Cyanoacrylate 1 APPLIC TUBE TOP ONE (14:57)
--- NOTE | 2019-02-12 14:59 | EDM.PDOC ---
ED HPI GENERAL MEDICAL PROBLEM - General Chief Complaint: Laceration Stated Complaint: LEFT HAND LACERATION Time Seen by Provider: 02/12/19 14:45 Source of Information: Reports: Patient History Limitations: Reports: No Limitations - History of Present Illness INITIAL COMMENTS - FREE TEXT/NARRATIVE: HISTORY AND PHYSICAL: History of present illness: Patient is a 18-year-old female presents to the ED today with concern of a pointer finger left hand laceration that occurred just prior to arrival to the ED. Patient states she works at [employer] and lightly caught the tip of her pointer finger with a knife. Patient states there has been minimal bleeding but she came to the ED. Patient states she is up-to-date on her tetanus is she just saw her primary care provider few months ago who updated it. Patient states she' s been able to use the hand without difficulty and denies any other symptoms or concerns. Patient denies fever, chills, chest pain, shortness of breath, or cough. Denies headache, neck stiff ness, change in vision, syncope, or near syncope. Denies nausea, vomiting, abdominal pain, diarrhea, constipation, or dysuria. Has not noted any blood in urine or stool. Patient has been eating and drinking appropriately. Review of systems: As per history of present illness and below otherwise all systems reviewed and negative. Past medical history: As per history of present illness and as reviewed below otherwise noncontributory. Surgical history: As per history of present illness and as reviewed below otherwise noncontributory. Social history: See social history for further information Family history: As per history of present illness and as reviewed below otherwise noncontributory. Physical exam: General: Patient is alert, oriented, and in no acute distress. Patient sitting comfortably on exam table. HEENT: Atraumatic, normocephalic, pupils equal and reactive bilaterally, negative for conjunctival pallor or scleral icterus, mucous membranes moist, TMs normal bilaterally, throat clear, neck supple, nontender, trachea midline. No drooling or trismus noted. No meningeal signs. No hot potato voice noted. Lungs: Clear to auscultation, breath sounds equal bilaterally, chest nontender. Heart: S1S2, regular rate and rhythm without overt murmur Abdomen: Soft, nondistended, nontender. Negative for masses or hepatosplenomegaly. Negative for costovertebral tenderness. Pelvis: Stable nontender. Genitourinary: Deferred. Rectal: Deferred. Skin: Intact, warm, dry. No lesions or rashes noted. Extremities: Negative for cords or calf pain. Neurovascular unremarkable. There is a very superficial, 1cm laceration to the distal end of the 2nd digit of the left hand without bleeding. Patient has full range of motion of the digits of the left hand without deficit or difficulty. Patient has full range of motion of the left upper extremity without pain or difficulty. Radial pulses grossly intact with capillary refill less than 2 seconds of the left upper extremity. Neuro: Awake, alert, oriented. Cranial nerves II through XII unremarkable. Cerebellum unremarkable. Motor and sensory unremarkable throughout. Exam nonfocal. Notes: Discussed the importance for follow-up with a primary care provider. Voices understanding and is agreeable to plan of care. Denies any further questions or concerns at this time. Diagnostics: None Therapeutics: Dermabond, (patient states she is up-to-date on tetanus) Prescription: None Impression: Second digit laceration, left Plan: 1. Keep the area clean and dry. Continue to monitor for signs of infection as discussed. 2. Tylenol and/or ibuprofen as directed and as needed for pain management and discomfort. 3. Please follow-up with your primary care provider as discussed. Return to the ED as needed and as discussed. Definitive disposition and diagnosis as appropriate pending reevaluation and review of above. Left Finger-Index Pain Score (Numeric/FACES): 3 - Related Data Allergies Allergy/AdvReac Type Severity Reaction Status Date / Time lamotrigine [From Lamictal] Allergy Cannot Verified 02/12/19 14:22 Remember Sulfa (Sulfonamide Allergy Rash Verified 02/12/19 14:22 Antibiotics) Home Meds: Home Meds Albuterol Sulfate [Proair Hfa] 1 puff INH ASDIRECTED 09/21/18 [History] Cetirizine [ZyrTEC] 10 mg PO DAILY 09/21/18 [History] Montelukast [Singulair] 10 mg PO DAILY 09/21/18 [History] Past Medical History HEENT History: Reports: None Cardiovascular History: Reports: Hypertension Respiratory History: Reports: Asthma Gastrointestinal History: Reports: None Genitourinary History: Reports: None [employer] History: Reports: None Musculoskeletal History: Reports: None Neurological History: Reports: None Psychiatric History: Reports: Anxiety, Depression, PTSD Endocrine/Metabolic History: Reports: None Hematologic History: Reports: None Immunologic History: Reports: None Oncologic (Cancer) History: Reports: None Dermatologic History: Reports: None - Infectious Disease History Infectious Disease History: Reports: None - Past Surgical History Head Surgeries/Procedures: Reports: None HEENT Surgical History: Reports: None GI Surgical History: Reports: None Female Surgical History: Reports: None Endocrine Surgical History: Reports: None Neurological Surgical History: Reports: None Musculoskeletal Surgical History: Reports: None Oncologic Surgical History: Reports: None Dermatological Surgical History: Reports: None Social & Family History - Family History Family Medical History: Noncontributory - Tobacco Use Smoking Status *Q: Never Smoker Second Hand Smoke Exposure: No - Caffeine Use Caffeine Use: Reports: None - Recreational Drug Use Recreational Drug Use: No ED ROS GENERAL - Review of Systems Review Of Systems: ROS reveals no pertinent complaints other than HPI. ED EXAM, SKIN/RASH Exam: See Below (See dictation) ED SKIN PROCEDURES - Laceration/Wound Repair Left Digit - 2nd (Index) Appearance: Superficial Distal NVT: Neuro & Vascular Intact, No Tendon Injury Skin Prep: Chlorhexidine (Hibiciens) Saline Irrigation (cc's): 50 Exploration/Debridement/Repair: Wound Explored, In a Bloodless Field, Explored to Base, No Foreign Material Found Closed with: Dermabond Lac/Wound length In cm: 1 Drain Placement: No Sterile Dressing Applied: Nurse Tetanus Status Addressed: Yes (up to date) Complications: No Course - Vital Signs Last Recorded V/S: Last Vital Signs Temp 36.4 C 02/12/19 14:20 Pulse 78 02/12/19 14:20 Resp 20 02/12/19 14:20 BP 136/93 H 02/12/19 14:20 Pulse Ox 98 02/12/19 14:20 - Orders/Labs/Meds Meds: Medications Discontinued Medications Generic Name Dose Route Start Last Admin Trade Name Freq PRN Reason Stop Dose Admin Octyl Cyanoacrylate 1 applic 02/12/19 14:57 02/12/19 15:00 Dermabond Mini TOP 02/12/19 14:58 1 applic ONETIME ONE Administration Departure - Departure Time of Disposition: 14:58 Disposition: Home, Self-Care 01 Clinical Impression: Finger laceration Qualifiers: Encounter type: initial encounter Finger: index finger Damage to nail status: without damage Foreign body presence: without foreign body Laterality: left Qualified Code(s): S61.211A - Laceration without foreign body of left index finger without damage to nail, initial encounter - Discharge Information Referrals: PCP,Unknown [Primary Care Provider] - Forms: ED Department Discharge Additional Instructions: The following information is given to patients seen in the emergency department who are being discharged to home. This information is to outline your options for follow-up care. We provide all patients seen in our emergency department with a follow-up referral. The need for follow-up, as well as the timing and circumstances, are variable depending upon the specifics of your emergency department visit. If you don't have a primary care physician on staff, we will provide you with a referral. We always advise you to contact your personal physician following an emergency department visit to inform them of the circumstance of the visit and for follow-up with them and/or the need for any referrals to a consulting specialist. The emergency department will also refer you to a specialist when appropriate. This referral assures that you have the opportunity for follow-up care with a specialist. All of these measure are taken in an effort to provide you with optimal care, which includes your follow-up. Under all circumstances we always encourage you to contact your private physician who remains a resource for coordinating your care. When calling for follow-up care, please make the office aware that this follow-up is from your recent emergency room visit. If for any reason you are refused follow-up, please contact the [facility] Emergency Department at and asked to speak to the emergency department charge nurse. [facility] [address] [place] [id number] [address] [address] 1. Keep the area clean and dry. Continue to monitor for signs of infection as discussed. 2. Tylenol and/or ibuprofen as directed and as needed for pain management and discomfort. 3. Please follow-up with your primary care provider as discussed. Return to the ED as needed and as discussed.
== END 2019-02-12 15:12 | disposition home or self-care (01) ==
LOC: MW.ED 13:50
DX: S61.211A Laceration without foreign body of left index finger without damage to nail, initial encounter (principal); I10 Essential (primary) hypertension; J45.909 Unspecified asthma, uncomplicated; Z88.8 Allergy status to other drugs, medicaments and biological substances; Z88.2 Allergy status to sulfonamides; Z79.899 Other long term (current) drug therapy; W26.0XXA Contact with knife, initial encounter; Y99.0 Civilian activity done for income or pay
CPT/HCPCS: 12001; 99282; A9270

== ENCOUNTER 2019-02-15 16:59 | Emergency (ER) | payer OTHER | END 2019-02-15 17:09 | disposition left against medical advice (07) | LOC: MW.ED 16:59 | DX: Z53.21 Procedure and treatment not carried out due to patient leaving prior to being seen by health care provider (principal) ==

== ENCOUNTER 2019-05-25 10:58 | Emergency (ER) | payer BC ==
[2019-05-25] MEDS ORDERED: Albuterol/Ipratropium 3.0-0.5 MG/3 ML Neb Soln NEB ONE (11:21)
--- NOTE | 2019-05-25 11:35 | EDM.PDOC ---
ED HPI GENERAL MEDICAL PROBLEM - General Chief Complaint: Respiratory Problem Stated Complaint: BREATHING TREATMENT Time Seen by Provider: 05/25/19 11:30 Source of Information: Reports: Patient History Limitations: Reports: No Limitations - History of Present Illness INITIAL COMMENTS - FREE TEXT/NARRATIVE: HISTORY AND PHYSICAL: History of present illness: Patient is a 19-year-old female presents to the ED with complaint of asthma exacerbation. She states for the past couple of days she has had a cough and shortness of breath. She is using her inhaler every 4-6 hours with some relief. She is currently taking 40mg prednisone daily x 5 days and has had 2 days worth of this. She denies fevers, chills, vomiting, abdominal pain. She reports some nausea and nonbloody diarrhea. Review of systems: As per history of present illness and below otherwise all systems reviewed and negative. Past medical history: As per history of present illness and as reviewed below otherwise noncontributory. Surgical history: As per history of present illness and as reviewed below otherwise noncontributory. Social history: No reported history of drug or alcohol abuse. Family history: As per history of present illness and as reviewed below otherwise noncontributory. Physical exam: General: Patient sitting comfortably in no acute distress and nontoxic appearing HEENT: Atraumatic, normocephalic, pupils reactive, negative for conjunctival pallor or scleral icterus, mucous membranes moist, throat clear, neck supple, nontender, trachea midline. No meningeal signs. Lungs: Clear to auscultation, breath sounds equal bilaterally, chest nontender. Heart: S1S2, regular, negative for clicks, rubs, or overt murmur. Abdomen: Soft, nondistended, nontender. Negative for masses or hepatosplenomegaly. Negative for costovertebral tenderness. No rigidity, rebound , guarding. Pelvis: Stable nontender. Genitourinary: Deferred. Rectal: Deferred. Extremities: Atraumatic, negative for cords or calf pain. Neurovascular unremarkable. Neuro: Awake, alert, oriented. Cranial nerves II through XII unremarkable. Cerebellum unremarkable. Motor and sensory unremarkable throughout. Exam nonfocal. Notes: Diagnostics: Influenza Therapeutics: DuoNeb Prescriptions: Tamiflu Impression: Influenza B Definitive disposition and diagnosis as appropriate pending reevaluation and review of above. Chest Pain Score (Numeric/FACES): 4 - Related Data Allergies Allergy/AdvReac Type Severity Reaction Status Date / Time lamotrigine [From Lamictal] Allergy Cannot Verified 05/25/19 11:15 Remember Sulfa (Sulfonamide Allergy Rash Verified 05/25/19 11:15 Antibiotics) Home Meds: Home Meds Albuterol Sulfate [Proair Hfa] 1 puff INH ASDIRECTED 09/21/18 [History] Cetirizine [ZyrTEC] 10 mg PO DAILY 09/21/18 [History] Montelukast [Singulair] 10 mg PO DAILY 09/21/18 [History] Oseltamivir [Tamiflu] 75 mg PO BID 5 Days #10 cap 05/25/19 [Rx] predniSONE [Prednisone] 40 mg PO DAILY 05/25/19 [History] Past Medical History HEENT History: Reports: None Cardiovascular History: Reports: Hypertension Respiratory History: Reports: Asthma Gastrointestinal History: Reports: None Genitourinary History: Reports: None [employer] 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: Reports: 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 Musculoskeletal History: Reports: None Neurological History: Reports: None Psychiatric History: Reports: Anxiety, Depression, PTSD Endocrine/Metabolic History: Reports: None Hematologic History: Reports: None Immunologic History: Reports: None Oncologic (Cancer) History: Reports: None Dermatologic History: Reports: None - Infectious Disease History Infectious Disease History: Reports: None - Past Surgical History Head Surgeries/Procedures: Reports: None HEENT Surgical History: Reports: None Cardiovascular Surgical History: Reports: None Respiratory Surgical History: Reports: None GI Surgical History: Reports: None Female Surgical History: Reports: None Endocrine Surgical History: Reports: None Neurological Surgical History: Reports: None Musculoskeletal Surgical History: Reports: None Oncologic Surgical History: Reports: None Dermatological Surgical History: Reports: None Social & Family History - Family History Family Medical History: Noncontributory - Tobacco Use Smoking Status *Q: Former Smoker Used Tobacco, but Quit: Yes Month/Year Tobacco Last Used: 2018 - Caffeine Use Caffeine Use: Reports: None - Recreational Drug Use Recreational Drug Use: No ED ROS GENERAL - Review of Systems Review Of Systems: Comprehensive ROS is negative, except as noted in HPI. ED EXAM, GENERAL - Physical Exam Exam: See Below (see dictation) Course - Vital Signs Last Recorded V/S: Last Vital Signs Temp 97.5 F 05/25/19 11:12 Pulse 109 H 05/25/19 11:12 Resp 18 05/25/19 11:12 BP 146/104 H 05/25/19 11:12 Pulse Ox 98 05/25/19 11:12 - Orders/Labs/Meds Orders: Active Orders 24 hr Category Date Time Status RT Aerosol Therapy [RC] ASDIRECTED Care 05/25/19 11:21 Active Meds: Medications Discontinued Medications Generic Name Dose Route Start Last Admin Trade Name Freq PRN Reason Stop Dose Admin Albuterol/Ipratropium 3 ml 05/25/19 11:21 05/25/19 11:32 Duoneb 3.0-0.5 Mg/3 Ml NEB 05/25/19 11:22 3 ml ONETIME ONE Administration Departure - Departure Time of Disposition: 12:12 Disposition: Home, Self-Care 01 Condition: Good Clinical Impression: Influenza - Discharge Information Prescriptions: Oseltamivir [Tamiflu] 75 mg PO BID 5 Days #10 cap Referrals: Claudia Nunez DO [Primary Care Provider] - Forms: ED Department Discharge Additional Instructions: The following information is given to patients seen in the emergency department who are being discharged to home. This information is to outline your options for follow-up care. We provide all patients seen in our emergency department with a follow-up referral. The need for follow-up, as well as the timing and circumstances, are variable depending upon the specifics of your emergency department visit. If you don't have a primary care physician on staff, we will provide you with a referral. We always advise you to contact your personal physician following an emergency department visit to inform them of the circumstance of the visit and for follow-up with them and/or the need for any referrals to a consulting specialist. The emergency department will also refer you to a specialist when appropriate. This referral assures that you have the opportunity for follow-up care with a specialist. All of these measure are taken in an effort to provide you with optimal care, which includes your follow-up. Under all circumstances we always encourage you to contact your private physician who remains a resource for coordinating your care. When calling for follow-up care, please make the office aware that this follow-up is from your recent emergency room visit. If for any reason you are refused follow-up, please contact the [facility] Emergency Department at and asked to speak to the emergency department charge nurse. [facility] [address] [place] [address] [facility] [address] [place] [id number] Take medication as instructed Alternate tylenol and motrin as needed Continue inhaler 1-2 puffs every 4-6 hours as needed Follow up with primary care provider Return to ED as needed as discussed Sepsis Event Note - Evaluation Sepsis Screening Result: No Definite Risk - Focused Exam Vital Signs: Vital Signs Temp Pulse Resp BP Pulse Ox 05/25/19 11:12 97.5 F 109 H 18 146/104 H 98 Date Exam was Performed: 05/25/19 Time Exam was Performed: 12:12 - My Orders Last 24 Hours: My Active Orders 05/25/19 11:21 RT Aerosol Therapy [RC] ASDIRECTED - Assessment/Plan Last 24 Hours: My Active Orders 05/25/19 11:21 RT Aerosol Therapy [RC] ASDIRECTED
== END 2019-05-25 12:29 | disposition home or self-care (01) ==
LOC: MW.ED 10:58
DX: J10.1 Influenza due to other identified influenza virus with other respiratory manifestations (principal); I10 Essential (primary) hypertension; Z88.2 Allergy status to sulfonamides; Z88.8 Allergy status to other drugs, medicaments and biological substances; Z79.899 Other long term (current) drug therapy
CPT/HCPCS: 87804; 94640; 99283; 99285-25; J7620-GY

== ENCOUNTER 2019-12-13 15:25 | Emergency (ER) | payer OTHER ==
--- NOTE | 2019-12-13 16:21 | EDM.PDOC ---
ED HPI GENERAL MEDICAL PROBLEM - General Chief Complaint: Respiratory Problem Stated Complaint: SOB/COVID Time Seen by Provider: 12/13/19 15:28 - History of Present Illness INITIAL COMMENTS - FREE TEXT/NARRATIVE: History of present illness: 19-year-old female presenting with difficulty breathing over the last few days. She reports that 1 week ago she was diagnosed with COVID 19 after having a swab done at a mass testing event several days earlier. She has not had any fevers but has had a cough. She had to stop smoking shortly before the diagnosis of COVID. She has felt short of breath and needed to use her rescue inhaler, pro- air, more than usual. She was previously taking Flovent but could not afford the prescription when she lost her insurance therefore has not been taking any long-acting asthma medications. Review of systems: As per history of present illness and below otherwise all systems reviewed and negative. Past medical history: As per history of present illness and as reviewed below otherwise non contributory. Asthma, urticaria Surgical history: As per history of present illness and as reviewed below otherwise noncontributory. Social history: No reported history of drug or alcohol abuse. Recently quit smoking Family history: As per history of present illness and as reviewed below otherwise noncontributory. Physical exam: GEN: no acute distress, well appearing HEENT: Atraumatic, normocephalic, mucous membranes moist Neck: supple, nontender, trachea midline. Lungs: No respiratory distress. Oxygen saturation 98% Heart: RRR Extremities: Atraumatic. Neurovascularly intact. Neuro: Awake, alert, oriented. Neuro Exam nonfocal. Skin: warm, dry, no lesions Diagnostics: Chest x-ray Therapeutics: [] MDM: Impression: [] Plan: [] Definitive disposition and diagnosis as appropriate pending reevaluation and review of above. chest Pain Score (Numeric/FACES): 2 - Related Data Allergies Allergy/AdvReac Type Severity Reaction Status Date / Time lamotrigine [From Lamictal] Allergy Cannot Verified 12/13/19 15:33 Remember Sulfa (Sulfonamide Allergy Rash Verified 12/13/19 15:33 Antibiotics) Home Meds: Home Meds Albuterol Sulfate [Proair Hfa] 1 puff INH ASDIRECTED 09/21/18 [History] Cetirizine [ZyrTEC] 10 mg PO DAILY 09/21/18 [History] Montelukast [Singulair] 10 mg PO DAILY 09/21/18 [History] Albuterol Sulfate 2.5 mg IH Q6HR PRN #20 vial.neb 12/13/19 [Rx] Albuterol Sulfate [Proair Respiclick] 90 mcg IH Q6HR PRN #1 canister 12/13/19 [Rx] Past Medical History HEENT History: Reports: None Cardiovascular History: Reports: Hypertension Respiratory History: Reports: Asthma Gastrointestinal History: Reports: None Genitourinary History: Reports: None 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 Musculoskeletal History: Reports: None Neurological History: Reports: None Psychiatric History: Reports: Anxiety, Depression, PTSD Endocrine/Metabolic History: Reports: None Hematologic History: Reports: None Immunologic History: Reports: None Oncologic (Cancer) History: Reports: None Dermatologic History: Reports: None - Infectious Disease History Infectious Disease History: Reports: None - Past Surgical History Head Surgeries/Procedures: Reports: None HEENT Surgical History: Reports: None Cardiovascular Surgical History: Reports: None Respiratory Surgical History: Reports: None GI Surgical History: Reports: None Female Surgical History: Reports: None Endocrine Surgical History: Reports: None Neurological Surgical History: Reports: None Musculoskeletal Surgical History: Reports: None Oncologic Surgical History: Reports: None Dermatological Surgical History: Reports: None Social & Family History - Family History Family Medical History: Noncontributory - Tobacco Use Smoking Status *Q: Former Smoker Used Tobacco, but Quit: Yes Month/Year Tobacco Last Used: 2019 - Caffeine Use Caffeine Use: Reports: Soda - Recreational Drug Use Recreational Drug Use: No ED ROS GENERAL - Review of Systems Review Of Systems: See Below (See HPI) ED EXAM, GENERAL - Physical Exam Exam: See Below (See HPI) Course - Vital Signs Text/Narrative:: Dyspnea, dry cough, afebrile, generally well-appearing oxygen saturation 98%. Recent positive COVID-19 swab. Suspect symptoms are related to COVID-19, however with underlying history of asthma will closely monitor. chest x-ray with no acute findings. Last Recorded V/S: Last Vital Signs Temp 96.6 F L 12/13/19 15:34 Pulse 87 12/13/19 15:34 Resp 20 12/13/19 15:34 BP 122/59 L 12/13/19 15:34 Pulse Ox 97 12/13/19 15:34 - Re-Assessments/Exams Free Text/Narrative Re-Assessment/Exam: 12/13/19 17:11 Patient with no significant respiratory distress on pulse oximetry still showing levels in the mid to upper 90s. Patient meets criteria for outpatient COVID monitoring. Stable for discharge. Discussed with patient need to self quarantine for 14 days, avoid any contact with anyone else. Departure - Departure Time of Disposition: 17:12 Disposition: Home, Self-Care 01 Clinical Impression: COVID-19 - Discharge Information Prescriptions: Albuterol Sulfate 2.5 mg IH Q6HR PRN #20 vial.neb PRN Reason: Dyspnea Albuterol Sulfate [Proair Respiclick] 90 mcg IH Q6HR PRN #1 canister PRN Reason: Dyspnea Instructions: Asthma, Adult, COVID-19 Frequently Asked Questions, Shortness of Breath, Adult, [id number], Upper Respiratory Infection, Adult, [id number], COVID-19: How to Protect Yourself and Others - CDC, Prevent the Spread of COVID- 19 if You Are Sick - [facility] Referrals: PCP,None [Primary Care Provider] - Forms: ED Department Discharge Additional Instructions: You will need to self isolate and quarantine for 14 days. You must not have any contact with anyone else. Wear a mask if you have any other family members living with you at home. Do not leave your home. You must have food brought to you, do not go out or go to the supermarket. Do not congregate with other people. Continue to monitor your symptoms at home. You may take your pro-air or nebulizer as needed for your breathing. Do not start smoking. You may also purchase a home portable pulse oximeter to monitor your oxygen saturation. Please check your temperature once per day. Return to the emergency department if you develop any respiratory distress, high fevers or severe difficulty breathing. The following information is given to patients seen in the emergency department who are being discharged to home. This information is to outline your options for follow-up care. We provide all patients seen in our emergency department with a follow-up referral. The need for follow-up, as well as the timing and circumstances, are variable depending upon the specifics of your emergency department visit. If you don't have a primary care physician on staff, we will provide you with a referral. We always advise you to contact your personal physician following an emergency department visit to inform them of the circumstance of the visit and for follow-up with them and/or the need for any referrals to a consulting specialist. The emergency department will also refer you to a specialist when appropriate. This referral assures that you have the opportunity for follow-up care with a specialist. All of these measure are taken in an effort to provide you with optimal care, which includes your follow-up. Under all circumstances we always encourage you to contact your private physician who remains a resource for coordinating your care. When calling for follow-up care, please make the office aware that this follow-up is from your recent emergency room visit. If for any reason you are refused follow-up, please contact the [facility] Emergency Department at and asked to speak to the emergency department charge nurse. [facility] - [facility] [address] [place] [id number] [facility] [address] [place] [id number] Sepsis Event Note (ED) - Evaluation Sepsis Screening Result: No Definite Risk - Focused Exam Vital Signs: Vital Signs Temp Pulse Resp BP Pulse Ox 12/13/19 15:34 96.6 F L 87 20 122/59 L 97
--- NOTE | 2019-12-13 16:56 | CR ---
Chest: Portable view of the chest was obtained. Comparison: Prior chest x-ray of 12/02/18. Heart size and mediastinum are normal. Lungs are clear with no acute parenchymal change. Bony structures shows no discrete abnormality. Impression: 1. Nothing acute is appreciated on portable chest x-ray. Diagnostic code #1 This report was dictated in MDT
== END 2019-12-13 17:36 | disposition home or self-care (01) ==
LOC: MW.ED 15:25
DX: U07.1 COVID-19 (principal); I10 Essential (primary) hypertension; J45.909 Unspecified asthma, uncomplicated; Z87.891 Personal history of nicotine dependence; Z88.2 Allergy status to sulfonamides; Z88.8 Allergy status to other drugs, medicaments and biological substances; Z79.899 Other long term (current) drug therapy
CPT/HCPCS: 71045; 71045-26; 99283; 99284-25

== ENCOUNTER 2020-09-02 18:20 | Emergency (ER) | payer SELFPAY ==
--- NOTE | 2020-09-02 20:17 | EDM.PDOC ---
ED HPI GENERAL MEDICAL PROBLEM - General Chief Complaint: ENT Problem Stated Complaint: POSSIBLE STREP, WHITE SPOTS IN MOUTH Time Seen by Provider: 09/02/20 18:21 Source of Information: Reports: Patient History Limitations: Reports: No Limitations - History of Present Illness INITIAL COMMENTS - FREE TEXT/NARRATIVE: Patient presents reporting a sore throat increased pain with swallowing and that she felt "hot" earlier today. No known exposure. No fever, past medical problems. She does not have young children. status unknown. Otherwise healthy without chronic medical problems throat Pain Score (Numeric/FACES): 5 - Related Data Allergies Allergy/AdvReac Type Severity Reaction Status Date / Time lamotrigine [From Lamictal] Allergy Cannot Verified 09/02/20 19:17 Remember Sulfa (Sulfonamide Allergy Rash Verified 09/02/20 19:17 Antibiotics) Home Meds: Home Meds Albuterol Sulfate [Proair Hfa] 1 puff INH ASDIRECTED 09/21/18 [History] Cetirizine [ZyrTEC] 10 mg PO DAILY 09/21/18 [History] Montelukast [Singulair] 10 mg PO DAILY 09/21/18 [History] Albuterol Sulfate 2.5 mg IH Q6HR PRN #20 vial.neb 12/13/19 [Rx] Albuterol Sulfate [Proair Respiclick] 90 mcg IH Q6HR PRN #1 canister 12/13/19 [Rx] Amoxicillin 500 mg PO BID #20 capsule 09/02/20 [Rx] Past Medical History HEENT History: Reports: None Cardiovascular History: Reports: Hypertension Respiratory History: Reports: Asthma Gastrointestinal History: Reports: None Genitourinary History: Reports: None 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, 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 Musculoskeletal History: Reports: None Neurological History: Reports: None Psychiatric History: Reports: Anxiety, Depression, PTSD Endocrine/Metabolic History: Reports: None Insulin Pump Model and Tellers Supervisor: None Hematologic History: Reports: None Immunologic History: Reports: None Oncologic (Cancer) History: Reports: None Dermatologic History: Reports: None - Infectious Disease History Infectious Disease History: Reports: None - Past Surgical History Head Surgeries/Procedures: Reports: None HEENT Surgical History: Reports: None Cardiovascular Surgical History: Reports: None Respiratory Surgical History: Reports: None GI Surgical History: Reports: None Female Surgical History: Reports: None Endocrine Surgical History: Reports: None Neurological Surgical History: Reports: None Musculoskeletal Surgical History: Reports: None Oncologic Surgical History: Reports: None Dermatological Surgical History: Reports: None Social & Family History - Family History Family Medical History: No Pertinent Family History - Caffeine Use Caffeine Use: Reports: Soda - Recreational Drug Use Recreational Drug Use: No ED ROS ENT - Review of Systems Review Of Systems: Comprehensive ROS is negative, except as noted in HPI. ED EXAM, ENT - Physical Exam Exam: See Below Exam Limited By: No Limitations General Appearance: Alert, No Apparent Distress Ears: Normal External Exam, Normal TMs Nose: Normal Inspection Mouth/Throat: Pharyngeal Erythema, Tonsillar Erythema. No: Peritonsillar Mass, Throat Swelling, Tonsillar Exudates, Tonsillar Swelling Head: Atraumatic, Normocephalic Neck: Normal Inspection. No: Lymphadenopathy (L), Lymphadenopathy (R) Respiratory/Chest: No Respiratory Distress, Lungs Clear, Normal Breath Sounds Cardiovascular: Normal Peripheral Pulses, Regular Rate, Rhythm, No Murmur Back: Normal Inspection Extremities: Normal Inspection, Normal Range of Motion Neurological: Alert, Oriented, Normal Cognition Psychiatric: Normal Affect, Normal Mood Skin: Warm, Dry, Intact, Normal Color, No Rash Lymphatic: No Adenopathy Course - Vital Signs Last Recorded V/S: Last Vital Signs Temp 36.4 C 09/02/20 19:17 Pulse 73 09/02/20 19:17 Resp 18 09/02/20 19:17 BP 146/75 H 09/02/20 19:17 Pulse Ox 98 09/02/20 19:17 - Orders/Labs/Meds Labs: Laboratory Tests 09/02/20 Range/Units 19:10 Group A Strep (PCR) DETECTED H (NOT DETECT) Departure - Departure Time of Disposition: 20:14 Disposition: Home, Self-Care 01 Condition: Good Clinical Impression: Strep pharyngitis - Discharge Information Prescriptions: Amoxicillin 500 mg PO BID #20 capsule Referrals: Claudia Nunez DO [Primary Care Provider] - Additional Instructions: The following information is given to patients seen in the emergency department who are being discharged to home. This information is to outline your options for follow-up care. We provide all patients seen in our emergency department with a follow-up referral. The need for follow-up, as well as the timing and circumstances, are variable depending upon the specifics of your emergency department visit. If you don't have a primary care physician on staff, we will provide you with a referral. We always advise you to contact your personal physician following an emergency department visit to inform them of the circumstance of the visit and for follow-up with them and/or the need for any referrals to a consulting specialist. The emergency department will also refer you to a specialist when appropriate. This referral assures that you have the opportunity for follow-up care with a specialist. All of these measure are taken in an effort to provide you with optimal care, which includes your follow-up. Under all circumstances we always encourage you to contact your private physician who remains a resource for coordinating your care. When calling for follow-up care, please make the office aware that this follow-up is from your recent emergency room visit. If for any reason you are refused follow-up, please contact the [facility] Emergency Department at and asked to speak to the emergency department charge nurse. 1. Your antibiotic twice daily starting today 2. Salt water gargles every 2-4 hours as needed for pain 3. Tylenol or Profen 2-3 tabs 3 times daily or Aleve 2 tabs twice daily as needed for throat pain 4. Drink plenty of fluids 5. Return to work 24 hours after treatment commences Sepsis Event Note (ED) - Evaluation Sepsis Screening Result: No Definite Risk - Focused Exam Vital Signs: Vital Signs Temp Pulse Resp BP Pulse Ox 09/02/20 19:17 36.4 C 73 18 146/75 H 98
== END 2020-09-02 20:30 | disposition home or self-care (01) ==
LOC: MW.ED 18:20
DX: J02.0 Streptococcal pharyngitis (principal); I10 Essential (primary) hypertension; J45.909 Unspecified asthma, uncomplicated; Z88.8 Allergy status to other drugs, medicaments and biological substances; Z88.2 Allergy status to sulfonamides; Z79.899 Other long term (current) drug therapy
CPT/HCPCS: 87651-QW; 99282; 99283

== ENCOUNTER 2021-05-12 16:45 | Emergency (ER) | payer SELFPAY ==
--- NOTE | 2021-05-12 17:04 | EDM.PDOC ---
ED HPI GENERAL MEDICAL PROBLEM - General Chief Complaint: ENT Problem Stated Complaint: SORE THROAT, COUGH Time Seen by Provider: 05/12/21 16:58 - History of Present Illness INITIAL COMMENTS - FREE TEXT/NARRATIVE: 21-year-old female history of asthma presenting with sore throat pain with swallowing has been going on for the last 2 to 3 days. No fevers no cough no shortness of breath no chest pain some general malaise. Symptoms worsen with swallowing. No vomiting. No history of recent antibiotic use. No allergies. No daily medications. She notes that she has not had an inhaler in some time because of finances she is in was hoping she could get 1 is the cold does tend to activate her asthma. Throat Pain Score (Numeric/FACES): 8 - Related Data Allergies Allergy/AdvReac Type Severity Reaction Status Date / Time lamotrigine [From Lamictal] Allergy Cannot Verified 05/12/21 16:55 Remember Sulfa (Sulfonamide Allergy Rash Verified 05/12/21 16:55 Antibiotics) Home Meds: Home Meds . 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 Musculoskeletal History: Reports: None Neurological History: Reports: None Psychiatric History: Reports: Anxiety, Depression, PTSD Endocrine/Metabolic History: Reports: None Insulin Pump Model and Stabilizer Operator: None Hematologic History: Reports: None Immunologic History: Reports: None Oncologic (Cancer) History: Reports: None Dermatologic History: Reports: None - Infectious Disease History Infectious Disease History: Reports: None - Past Surgical History Head Surgeries/Procedures: Reports: None HEENT Surgical History: Reports: None Cardiovascular Surgical History: Reports: None Respiratory Surgical History: Reports: None GI Surgical History: Reports: None Female Surgical History: Reports: None Endocrine Surgical History: Reports: None Neurological Surgical History: Reports: None Musculoskeletal Surgical History: Reports: None Oncologic Surgical History: Reports: None Dermatological Surgical History: Reports: None Social & Family History - Family History Family Medical History: No Pertinent Family History - Caffeine Use Caffeine Use: Reports: Soda ED ROS GENERAL - Review of Systems Review Of Systems: See Below Free Text/Narrative/Comment: General: No fever. Skin: No rash. Eyes: No vision problems. ENT: Per HPI Neck: No neck stiffness. Respiratory: No shortness of breath. Cardiac: No chest pain. Gastrointestinal: No nausea, vomiting or abdominal pain. Urinary: No dysuria. Musculoskeletal: No myalgias/arthralgias. Neurologic: No headache. ED EXAM, GENERAL - Physical Exam Exam: See Below Free Text/Narrative:: General Appearance: No acute distress, appears comfortable Skin: No rash HEENT: Normocephalic/atraumatic, sclera anicteric, mucous membranes moist, no trismus no submental or sublingual swelling uvula midline some posterior oropharyngeal erythema but no clear exudates no stridor no hoarse voice normal work of breathing, positive for cervical lymphadenopathy Neck: Normal range of motion Chest and Lungs: Bilateral breath sounds, clear to auscultation Cardiovascular: Regular rate and rhythm Musculoskeletal: No edema or tenderness Neurologic: Awake, alert, no obvious deficits, moving all extremities Psychiatric: Appropriate, cooperative Course - Vital Signs Last Recorded V/S: Last Vital Signs Temp 97.1 F 05/12/21 16:56 Pulse 82 05/12/21 16:56 Resp 16 05/12/21 16:56 BP 140/105 H 05/12/21 16:56 Pulse Ox 97 05/12/21 16:56 - Orders/Labs/Meds Orders: Active Orders 24 hr Category Date Time Status RT Post Treatment Assessment [RC] Click to Edit Care 05/12/21 17:08 Active RT Pre-Treatment Assessment [RC] Click to Edit Care 05/12/21 17:08 Active Labs: Laboratory Tests 05/12/21 Range/Units 17:10 Group A Strep (PCR) NOT DETECTED (NOT DETECT) Meds: Medications Discontinued Medications Generic Name Dose Route Start Last Admin Trade Name Freq PRN Reason Stop Dose Admin Albuterol 1 gm 05/12/21 17:08 05/12/21 17:21 Albuterol 8 Gm Inhaler INH 05/12/21 17:09 1 puff ONETIME ONE Administration Dexamethasone 10 mg 05/12/21 17:57 Dexamethasone 10 Mg/Ml Sdv IVPUSH 05/12/21 17:58 ONETIME ONE Departure - Departure Time of Disposition: 18:03 Disposition: Home, Self-Care 01 Condition: Good Clinical Impression: Viral pharyngitis - Discharge Information *PRESCRIPTION DRUG MONITORING PROGRAM REVIEWED*: Not Applicable *COPY OF PRESCRIPTION DRUG MONITORING REPORT IN PATIENT NANETTE: Not Applicable Instructions: Pharyngitis Forms: ED Department Discharge Additional Instructions: Your symptoms should improve in the coming days. If they do not please follow- up with a primary care clinic. If your symptoms worsen, you develop neck stiffness, inability to swallow or breathe, or high fever please return to the ER. [facility] [address] [place] [id number] [facility] [address] [place] [id number] The following information is given to patients seen in the emergency department who are being discharged to home. This information is to outline your options for follow-up care. We provide all patients seen in our emergency department with a follow-up referral. The need for follow-up, as well as the timing and circumstances, are variable depending upon the specifics of your emergency department visit. If you don't have a primary care physician on staff, we will provide you with a referral. We always advise you to contact your personal physician following an emergency department visit to inform them of the circumstance of the visit and for follow-up with them and/or the need for any referrals to a consulting specialist. The emergency department will also refer you to a specialist when appropriate. This referral assures that you have the opportunity for follow-up care with a specialist. All of these measure are taken in an effort to provide you with optimal care, which includes your follow-up. Under all circumstances we always encourage you to contact your private physician who remains a resource for coordinating your care. When calling for follow-up care, please make the office aware that this follow-up is from your recent emergency room visit. If for any reason you are refused follow-up, please contact the [facility] Emergency Department at and asked to speak to the emergency department charge nurse. Sepsis Event Note (ED) - Focused Exam Vital Signs: Vital Signs Temp Pulse Resp BP Pulse Ox 05/12/21 16:56 97.1 F 82 16 140/105 H 97 - My Orders Last 24 Hours: My Active Orders 05/12/21 17:08 RT Post Treatment Assessment [RC] Click to Edit RT Pre-Treatment Assessment [RC] Click to Edit - Assessment/Plan Last 24 Hours: My Active Orders 05/12/21 17:08 RT Post Treatment Assessment [RC] Click to Edit RT Pre-Treatment Assessment [RC] Click to Edit Assessment:: 21-year-old female presenting with signs and symptoms most consistent with pharyngitis. Strep is a consideration viral is more likely strep swab is been taken. Would plan for antibiotics if strep is positive Decadron if strep is negative for positive. Patient also to be given 2 puffs from an albuterol inhaler. Strep swab negative vital signs remain good patient given a dose of Decadron h ere return precaution discussed and understood.
[2021-05-12] MEDS ORDERED: Albuterol 8 GM Inhaler INH ONE (17:08)
[2021-05-12] MEDS ORDERED: Dexamethasone 10 MG/ML SDV IVPUSH ONE (17:57)
== END 2021-05-12 18:12 | disposition home or self-care (01) ==
LOC: MW.ED 16:45
DX: J02.8 Acute pharyngitis due to other specified organisms (principal); B97.89 Other viral agents as the cause of diseases classified elsewhere; Z88.8 Allergy status to other drugs, medicaments and biological substances; Z88.2 Allergy status to sulfonamides
CPT/HCPCS: 87651; 96374; 99283; A9270; J1100

== ENCOUNTER 2021-05-16 15:23 | Emergency (ER) | payer SELFPAY ==
--- NOTE | 2021-05-16 15:31 | EDM.PDOC ---
ED HPI GENERAL MEDICAL PROBLEM - General Chief Complaint: ENT Problem Stated Complaint: SORE THROAT Time Seen by Provider: 05/16/21 15:30 Source of Information: Reports: Patient History Limitations: Reports: No Limitations - History of Present Illness INITIAL COMMENTS - FREE TEXT/NARRATIVE: HISTORY AND PHYSICAL: History of present illness: Patient is a 21-year-old female who presents to the emergency room with complaints of sore throat and right ear pain x 4-5 days. Patient was seen in our emergency room on 05/12/2021 and was diagnosed with viral pharyngitis. Strep screening was negative at that time. She is concerned as she is not improving. Has been trying OTC medications without improvement. She would also like to be tested for COVID-19. Patient denies any fever, chills, headache, change in vision, syncope or near syncope. Denies any chest pain, back pain, shortness of breath or cough. Denies any GI or symptoms. Patient has been eating and drinking appropriately. No recent travel or sick contacts. Review of systems: As per history of present illness and below otherwise all systems reviewed and negative. Past medical history: As per history of present illness and as reviewed below otherwise noncontributory. Surgical history: As per history of present illness and as reviewed below otherwise noncontributory. Social history: See social history for further information Family history: As per history of present illness and as reviewed below otherwise noncontributory. Physical exam: General: Well developed and well nourished. Alert and orientated x 3. Nontoxic in appearance and in no acute distress. Vital signs are stable and have been reviewed by me. Nursing notes were reviewed. HEENT: Atraumatic, normocephalic, pupils equal and reactive bilaterally, negative for conjunctival pallor or scleral icterus, mucous membranes moist, Right TM is erythematous with dull light reflex, Left TM is normal, throat clear, neck supple, nontender, trachea midline. No drooling or trismus noted. No meningeal signs. No hot potato voice noted. Lungs: Clear to auscultation bilaterally. No wheezes, rales, or rhonchi. Chest nontender. Normal work of breathing, no accessory muscles used. Heart: S1S2, regular rate and rhythm without overt murmur, gallops, or rubs. No JVD. No peripheral edema Abdomen: Soft, nondistended, nontender. Skin: Intact, warm, dry. No lesions or rashes noted. Hematologic: No petechiae or purpra. Mucosa appropriate color and normal nail bed color and refill. Extremities: Atraumatic, moves all extremities per self without difficulty or deficits, negative for cords or calf pain. Neurovascular unremarkable. Neuro: Awake, alert, oriented. Cranial nerves II through XII unremarkable. Cerebellum unremarkable. Motor and sensory unremarkable throughout. Exam nonfocal. Psychiatric: Mood and affect are appropriate. Normal thought process. Answering questions appropriately. Please note that the patient was seen and evaluated during the 2019 SARS-CoV-2 novel coronavirus pandemic period. Community viral transmission is ongoing at time of this encounter and the emergency department is operating under pandemic response procedures. Medical Decision Making: Patient does have an early otitis media on the right. She was recently tested for strep throat which was negative. She is requesting COVID-19 testing today due to the "new strain". Covid and influenza testing are negative. We will provide her with Augmentin and miracle mouthwash for the throat discomfort. I have talked with the patient about today's findings, in addition to providing specific details for plan of care. Reassessment at the time of disposition demonstrates that the patient is in no acute distress. The patient is stable for discharge, counseling was provided and we discussed in great detail signs and symptoms that would prompt them to return to the Emergency Department. Medication, follow up and supportive care measures were reviewed and discussed. Voices understanding and is agreeable to plan of care. Denies any further questions or concerns at this time. Diagnostics: COVID-19/influenza Therapeutics: Viscous lidocaine Prescription: Miracle mouthwash, Augmentin Impression: Pharyngitis Otitus media, left Plan: 1. Take your medication as directed. Good handwashing and contact precautions as we discussed. Your COVID and influenza testing is negative. You can use the miracle mouthwash every 4-6 hours as needed for throat pain. You can gargle as long as able and spit the medication. 2. Warm Salt water gargles (rinse and spit) 3-4 x daily. Please get a new tooth brush after completion of your medication 3. Tylenol and or ibuprofen as needed for pain management. 4. Follow-up with your primary care provider in the next 1-2 days. Return to the ED as needed and as discussed. Definitive disposition and diagnosis as appropriate pending reevaluation and review of above. throat Pain Score (Numeric/FACES): 4 - Related Data Allergies Allergy/AdvReac Type Severity Reaction Status Date / Time lamotrigine [From Lamictal] Allergy Cannot Verified 05/16/21 15:32 Remember Sulfa (Sulfonamide Allergy Rash Verified 05/16/21 15:32 Antibiotics) Home Meds: Home Meds Amoxicillin/Clavulanate K [Augmentin 875-125 MG] 1 tab PO BID 7 Days #14 tablet 05/16/21 [Rx] Past Medical History HEENT History: Reports: None Cardiovascular History: Reports: Hypertension Respiratory History: Reports: Asthma Gastrointestinal History: Reports: None Genitourinary History: Reports: None FUEL MANAGER History: Reports: None, Therapeutic Musculoskeletal History: Reports: None Neurological History: Reports: None Psychiatric History: Reports: Anxiety, Depression, PTSD Endocrine/Metabolic History: Reports: None Insulin Pump Model and Wall Attendant: None Hematologic History: Reports: None Immunologic History: Reports: None Oncologic (Cancer) History: Reports: None Dermatologic History: Reports: None - Infectious Disease History Infectious Disease History: Reports: None - Past Surgical History Head Surgeries/Procedures: Reports: None HEENT Surgical History: Reports: None Cardiovascular Surgical History: Reports: None Respiratory Surgical History: Reports: None GI Surgical History: Reports: None Female Surgical History: Reports: None Endocrine Surgical History: Reports: None Neurological Surgical History: Reports: None Musculoskeletal Surgical History: Reports: None Oncologic Surgical History: Reports: None Dermatological Surgical History: Reports: None Social & Family History - Family History Family Medical History: No Pertinent Family History - Caffeine Use Caffeine Use: Reports: Soda ED ROS ENT - Review of Systems Review Of Systems: Comprehensive ROS is negative, except as noted in HPI. ED EXAM, ENT - Physical Exam Exam: See Below (See dictation) Course - Vital Signs Last Recorded V/S: Last Vital Signs Temp 97.2 F 05/16/21 15:32 Pulse 82 05/16/21 15:32 Resp 18 05/16/21 15:32 BP 144/109 H 05/16/21 15:32 Pulse Ox 95 05/16/21 15:32 - Orders/Labs/Meds Labs: Laboratory Tests 05/16/21 Range/Units 15:32 Influenza Type A RNA NEGATIVE (NEGATIVE) Influenza Type B RNA NEGATIVE (NEGATIVE) SARS-CoV-2 RNA ([place]) NEGATIVE (NEGATIVE) Meds: Medications Discontinued Medications Generic Name Dose Route Start Last Admin Trade Name Jayden PRN Reason Stop Dose Admin Lidocaine HCl 15 ml 05/16/21 15:37 05/16/21 16:38 Lidocaine 2% Viscous Solution 15 Ml Cup PO 05/16/21 15:38 15 ml ONETIME ONE Administration Departure - Departure Time of Disposition: 16:37 Disposition: Home, Self-Care 01 Clinical Impression: Pharyngitis Qualifiers: Pharyngitis/tonsillitis etiology: unspecified etiology Qualified Code(s): J02.9 - Acute pharyngitis, unspecified Otitis media Qualifiers: Otitis media type: suppurative Chronicity: acute Laterality: right Recurrence: non-recurrent Spontaneous tympanic membrane rupture: without spontaneous rupture Qualified Code(s): H66.001 - Acute suppurative otitis media without spontaneous rupture of ear drum, right ear - Discharge Information Prescriptions: Amoxicillin/Clavulanate K [Augmentin 875-125 MG] 1 tab PO BID 7 Days #14 tablet Instructions: Otitis Media, Adult, [id number] Referrals: PCP,None [Primary Care Provider] - Forms: ED Department Discharge Additional Instructions: The following information is given to patients seen in the emergency department who are being discharged to home. This information is to outline your options for follow-up care. We provide all patients seen in our emergency department with a follow-up referral. The need for follow-up, as well as the timing and circumstances, are variable depending upon the specifics of your emergency department visit. If you don't have a primary care physician on staff, we will provide you with a referral. We always advise you to contact your personal physician following an emergency department visit to inform them of the circumstance of the visit and for follow-up with them and/or the need for any referrals to a consulting specialist. The emergency department will also refer you to a specialist when appropriate. This referral assures that you have the opportunity for follow-up care with a specialist. All of these measure are taken in an effort to provide you with optimal care, which includes your follow-up. Under all circumstances we always encourage you to contact your private physician who remains a resource for coordinating your care. When calling for follow-up care, please make the office aware that this follow-up is from your recent emergency room visit. If for any reason you are refused follow-up, please contact the [facility] Emergency Department at and asked to speak to the emergency department charge nurse. [facility] [address] [place] [address] [facility] [address] [place] [address] Thank you for choosing the [facility] emergency department in [place] for your medical needs today. It was a pleasure caring for you. Today you were seen in the emergency department for throat pain Your prescription was electronically sent to: [place] [facility] (antibiotic) 1. Take your medication as directed. Good handwashing and contact precautions as we discussed. Your COVID and influenza testing is negative. You can use the miracle mouthwash every 4-6 hours as needed for throat pain. You can gargle as long as able and spit the medication. 2. Warm Salt water gargles (rinse and spit) 3-4 x daily. Please get a new tooth brush after completion of your medication 3. Tylenol and or ibuprofen as needed for pain management. 4. Follow-up with your primary care provider in the next 1-2 days. Return to the ED as needed and as discussed. Sepsis Event Note (ED) - Focused Exam Vital Signs: Vital Signs Temp Pulse Resp BP Pulse Ox 05/16/21 15:32 97.2 F 82 18 144/109 H 95
[2021-05-16] MEDS ORDERED: Lidocaine 2% Viscous Solution 15 ML Cup PO ONE (15:37)
[2021-05-16 16:35] LABS: CORONAVIRUS COVID-19 NAA NEGATIVE (NEGATIVE); INFLUENZA A NAA NEGATIVE (NEGATIVE); INFLUENZA B NAA NEGATIVE (NEGATIVE)
== END 2021-05-16 17:03 | disposition home or self-care (01) ==
LOC: MW.ED 15:23
DX: J02.9 Acute pharyngitis, unspecified (principal); H66.001 Acute suppurative otitis media without spontaneous rupture of ear drum, right ear; I10 Essential (primary) hypertension; Z88.2 Allergy status to sulfonamides; Z88.8 Allergy status to other drugs, medicaments and biological substances; Z20.822 Contact with and (suspected) exposure to COVID-19
CPT/HCPCS: 0240U; 99283; A9270

== ENCOUNTER 2021-07-20 03:05 | Emergency (ER) | payer OTHER ==
[2021-07-20] MEDS ORDERED: Morphine 4 MG/ML VIAL IVPUSH ONE (03:07)
[2021-07-20] MEDS ORDERED: Sodium Chloride 0.9% 1,000 ML IV ONE (03:07)
[2021-07-20] MEDS ORDERED: Ondansetron 4 MG/2 ML SDV IVPUSH ONE (03:07)
[2021-07-20] MEDS ORDERED: Iopamidol 755 MG/ML 500 ML Multipack Bottle IVPUSH ONE (03:18)
[2021-07-20 03:34] LABS: BLOOD UREA NITROGEN,BUN 10 mg/dL (7.0-18.0); CHLORIDE,CL 105 mmol/L (98-107); GLUCOSE RANDOM 114 mg/dL (74-106); LIPASE 44 U/L (73-393); POTASSIUM,K 3.8 mmol/L (3.5-5.1); SODIUM,NA 144 mmol/L (136-145)
== END 2021-07-20 05:10 | disposition home or self-care (01) ==
LOC: MW.ED 03:05
DX: S70.11XA Contusion of right thigh, initial encounter (principal); S30.810A Abrasion of lower back and pelvis, initial encounter; S30.811A Abrasion of abdominal wall, initial encounter; I10 Essential (primary) hypertension; J45.909 Unspecified asthma, uncomplicated; Z88.2 Allergy status to sulfonamides; Z88.8 Allergy status to other drugs, medicaments and biological substances; V49.10XA Passenger injured in collision with unspecified motor vehicles in nontraffic accident, initial encounter; Y92.410 Unspecified street and highway as the place of occurrence of the external cause
CPT/HCPCS: 36415; 70450; 71260; 72125; 73560; 74177; 80053; 80307; 81003; 82550; 83690; 84703; 85025; 96374; 96375; 99285; J2270; J2405; J7030; Q9967; 99284

== ENCOUNTER 2021-07-21 14:42 | Emergency (ER) | payer OTHER | END 2021-07-21 15:49 | disposition home or self-care (01) | LOC: MW.ED 14:42 | DX: S80.01XA Contusion of right knee, initial encounter (principal); I10 Essential (primary) hypertension; J45.909 Unspecified asthma, uncomplicated; Z88.2 Allergy status to sulfonamides; Z88.8 Allergy status to other drugs, medicaments and biological substances; V89.2XXA Person injured in unspecified motor-vehicle accident, traffic, initial encounter | CPT/HCPCS: 29530; 73562-26-RT; 73562-RT; 99282; 99283-25 ==

== ENCOUNTER 2021-12-16 15:59 | Emergency (ER) | payer SELFPAY ==
[2021-12-16] MEDS ORDERED: hydrOXYzine HCl 25 MG Tab PO ONE (16:38)
== END 2021-12-16 18:42 | disposition home or self-care (01) ==
LOC: MW.ED 15:59
DX: R07.89 Other chest pain (principal); I10 Essential (primary) hypertension; Z28.310 Unvaccinated for COVID-19; Z86.16 Personal history of COVID-19; Z88.8 Allergy status to other drugs, medicaments and biological substances; Z88.2 Allergy status to sulfonamides; Z20.822 Contact with and (suspected) exposure to COVID-19
CPT/HCPCS: 87635; 93005; 99285; A9270; 93010; 99284; U0002

== ENCOUNTER 2022-11-13 16:17 | Emergency (ER) | payer SELFPAY ==
[2022-11-13] MEDS ORDERED: Ketorolac 30 MG/ML SDV IVPUSH ONE (17:00)
[2022-11-13] MEDS ORDERED: Sodium Chloride 0.9% 1,000 ML IV ONE (17:00)
[2022-11-13] MEDS ORDERED: diphenhydrAMINE 50 MG/ML SDV IVPUSH ONE (17:00)
[2022-11-13] MEDS ORDERED: Ondansetron 4 MG/2 ML SDV IVPUSH ONE (17:00)
[2022-11-13] MEDS ORDERED: Metoclopramide 10 MG/2 ML SDV IV ONE (17:00)
== END 2022-11-13 19:10 | disposition home or self-care (01) ==
LOC: MW.ED 16:17
DX: S09.90XA Unspecified injury of head, initial encounter (principal); F07.81 Postconcussional syndrome; I10 Essential (primary) hypertension; J45.909 Unspecified asthma, uncomplicated; Z88.2 Allergy status to sulfonamides; Z88.8 Allergy status to other drugs, medicaments and biological substances; Z86.16 Personal history of COVID-19; W18.30XA Fall on same level, unspecified, initial encounter; Y92.000 Kitchen of unspecified non-institutional (private) residence as the place of occurrence of the external cause
CPT/HCPCS: 36415; 70450; 84703; 96361; 96374; 96375; 99284; J1200; J1885; J2405; J2765; J7030

== ENCOUNTER 2024-08-05 16:50 | Emergency (ER) | payer BC ==
[2024-08-05 17:30] LABS: APPEARANCE,URINE CLEAR; BILIRUBIN,URINE NEGATIVE (NEGATIVE); COLOR,URINE YELLOW; GLUCOSE,URINE NEGATIVE (NEGATIVE); KETONES,URINE NEGATIVE (NEGATIVE); LEUKOCYTE ESTERASE,URINE NEGATIVE (NEGATIVE); NITRITE,URINE NEGATIVE (NEGATIVE); OCCULT BLOOD,URINE NEGATIVE (NEGATIVE); PROTEIN,URINE NEGATIVE (NEGATIVE); UROBILINOGEN,URINE 0.2 EU/dL (<2.0)
[2024-08-05 18:25] LABS: CANDIDA DNA PROBE NEGATIVE (NEGATIVE); GARDNERELLA DNA PROBE NEGATIVE (NEGATIVE); TRICHOMONAS DNA PROBE NEGATIVE (NEGATIVE)
[2024-08-05 19:11] LABS: C. TRACHOMATIS BY PCR NOT DETECTED; N. GONORRHOEAE BY PCR NOT DETECTED
== END 2024-08-05 19:41 | disposition home or self-care (01) ==
LOC: MW.ED 16:50
DX: R30.0 Dysuria (principal); R10.2 Pelvic and perineal pain; Z88.2 Allergy status to sulfonamides; Z88.8 Allergy status to other drugs, medicaments and biological substances; Z79.51 Long term (current) use of inhaled steroids; Z79.899 Other long term (current) drug therapy; Z75.8 Other problems related to medical facilities and other health care
CPT/HCPCS: 76830; 76830-26; 81003; 81025; 87480; 87491; 87510; 87591; 87660; 99283; 99284